=== PATIENT | female | born 1955 | race Caucasian/White ===

== ENCOUNTER → 2016-06-10 | Outpatient (CLI) | payer MEDICARE ==
--- NOTE | 2016-06-10 16:00 | RAD ---
EXAM: MAMMO HERRERA SCREENING BILATERAL. HISTORY: Screening. COMPARISON: 12/06/2014 and 11/29/2008. FINDINGS: 2-D and 3-D tomosynthesis mammograms were obtained of both breasts in the CC and MLO projections. Computer-aided detection (CAD) was utilized. The breast parenchyma is heterogeneously dense which could reduce sensitivity of mammography (tissue density C). No dominant suspicious mass, suspicious microcalcifications, or architectural distortion is identified. Both breasts demonstrate scattered, benign-appearing calcifications as well as well-circumscribed, benign-appearing masses favored represent lymph nodes. IMPRESSION: No mammographic evidence of malignancy. BI-RADS CATEGORY: 2 BENIGN FINDING RECOMMENDED FOLLOW-UP: 12M 12 MONTH FOLLOW-UP PQRS compliance statement: Patient information was entered into a reminder system with a target due date for the next mammogram. Mammography is a sensitive method for finding small breast cancers, but it does not detect them all and is not a substitute for careful clinical examination. A negative mammogram does not negate a clinically suspicious finding and should not result in delay in biopsying a clinically suspicious abnormality. "Our facility is accredited by the [employer] Mammography Program."
== END | disposition home or self-care (01) ==
LOC: MAMMO 14:12
PROVIDERS: ATTEND Family Medicine
DX: Z12.31 Encounter for screening mammogram for malignant neoplasm of breast (principal)
CPT/HCPCS: 77063; G0202; 77067

== ENCOUNTER → 2017-03-17 | Outpatient (CLI) | payer MEDICARE ==
--- NOTE | 2017-03-17 09:06 | RAD ---
3 views left knee 03/17/2017 2:00 AM Indication: LEFT KNEE PAIN Comparison: None Findings: There is no fracture or dislocation identified. Articular surfaces are uninterrupted. Soft tissues are unremarkable. Impression: No evidence of acute osseous abnormality
== END | disposition home or self-care (01) ==
LOC: DXRAD 08:37
PROVIDERS: ATTEND Family Medicine
DX: M25.562 Pain in left knee (principal)
CPT/HCPCS: 73562

== ENCOUNTER → 2017-05-29 | Outpatient (CLI) | payer MEDICARE ==
--- NOTE | 2017-05-29 08:50 | RAD ---
Chest, 2 views, 05/29/2017: History: COPD Comparison is made to a study from 01/26/2015. The heart size and pulmonary vascularity are normal. There is calcific plaquing of the aorta. No pulmonary infiltrate is seen. There is no evidence of pleural fluid. Mild spurring is present in the spine. IMPRESSION: No acute cardiopulmonary abnormality is detected.
== END | disposition home or self-care (01) ==
LOC: LAB 08:19
PROVIDERS: ATTEND Family Medicine
DX: J44.1 Chronic obstructive pulmonary disease with (acute) exacerbation (principal)
CPT/HCPCS: 71046

== ENCOUNTER 2017-06-16 17:30 | Inpatient (IN) | payer MEDICARE ==
[~2017-06-16] VITALS: Ht 170.2 cm; Wt 108.0 kg
--- NOTE | 2017-06-16 17:44 | ED.ADGEN ---
Past History Past Medical History: Anxiety, COPD, GERD, Other Adult General Chief Complaint Chief Complaint ".. I started have chest pain yesterday.. millicent right here in the center... but today .. I had it all day.. I got scared this afternoon because it got really worse..." HPI HPI Patient is a 61 year old female who presents with above hx and complaints of CP , central, non-radiating, not related to movement or respirations. Pt. States pain was more than 10/10 this afternoon. Pt. denies prior episodes of CADz./ PE. Hx. of GERD, COPD and Anxiety. No hx of trauma. No cough or fever. Pt, . No hx of immunosuppression. No travel. Pt. does not know parents medical hx. Pt. normally follow with Dr. South. Review of Systems Review of Systems Constitutional: Denies fever or chills [] Eyes: Denies change in visual acuity, redness, or eye pain [] HENT: Denies nasal congestion or sore throat [] Respiratory: Denies cough or shortness of breath [] Cardiovascular: No additional information not addressed in HPI [] GI: Denies abdominal pain, nausea, vomiting, bloody stools or diarrhea [] : Denies dysuria or hematuria [] Musculoskeletal: Denies back pain or joint pain [] Integument: Denies rash or skin lesions [] Neurologic: Denies headache, focal weakness or sensory changes [] Endocrine: Denies polyuria or polydipsia [] All other systems were reviewed and found to be within normal limits, except as documented in this note. Family History Family History Not Know Current Medications Current Medications Current Medications Medications (Trade) Dose Ordered Sig/Maegan Start Time Stop Time Status Last Admin Dose Admin Acetaminophen/ Hydrocodone Bitart (Lortab 5/325) 1 tab 1X ONCE 06/16/17 19:15 06/16/17 19:16 DC 06/16/17 19:22 1 TAB Albuterol/ Ipratropium (Duoneb) 3 ml 1X ONCE 06/16/17 20:45 06/16/17 20:47 DC 06/16/17 20:52 3 ML Aspirin (Children'S Aspirin) 324 mg 1X ONCE 06/16/17 18:15 06/16/17 18:16 DC 06/16/17 18:26 324 MG Enoxaparin Sodium (Lovenox 100mg Syringe) 100 mg 1X ONCE 06/16/17 20:45 06/16/17 20:47 DC 06/16/17 20:54 100 MG Iohexol (Omnipaque 300 Mg/ml) 75 ml 1X ONCE 06/16/17 21:00 06/16/17 21:01 DC 06/16/17 21:13 75 ML Nitroglycerin (Nitro-Bid Oint) 1 inch 1X ONCE 06/16/17 18:00 06/16/17 18:15 DC 06/16/17 18:28 1 INCH Ondansetron HCl (Zofran) 8 mg 1X ONCE 06/16/17 19:15 06/16/17 19:16 DC 06/16/17 19:20 8 MG Sodium Chloride 1,000 ml @ 100 mls/hr Q10H 06/16/17 18:15 06/17/17 04:14 DC 06/16/17 18:10 100 MLS/HR Allergies Allergies Allergies Coded Allergies Type Severity Reaction Last Updated Verified meperidine Allergy Unknown 06/16/17 Yes Physical Exam Physical Exam Constitutional: Moderate distress, non-toxic appearance. [] HENT: Normocephalic, atraumatic, bilateral external ears normal, oropharynx moist, no oral exudates, nose normal. [] Eyes: PERRLA, EOMI, conjunctiva normal, no discharge. [] Neck: Normal range of motion, no tenderness, supple, no stridor. [] Cardiovascular: Tachycardia Heart rate regular rhythm, no murmur [] Lungs & Thorax: Bilateral breath sounds few scattered wheeze but equal at apex auscultation [] Abdomen: Bowel sounds normal, soft, no tenderness, no masses, no pulsatile masses. [] Obese. Skin: Warm, dry, no erythema, no rash. [] Back: No tenderness, no CVA tenderness. [] Extremities: No tenderness, no cyanosis, no clubbing, ROM intact, no edema. [] No significant cording noted. Neurologic: Alert and oriented X 3, normal motor function, normal sensory function, no focal deficits noted. [] Psychologic: Affect anxious, judgement normal, mood normal. [] Current Patient Data Vital Signs Vital Signs Date Time Temp Pulse Resp B/P (MAP) Pulse Ox O2 Delivery O2 Flow Rate FiO2 06/16/17 20:48 93 18 122/82 (95) 95 Room Air 06/16/17 17:52 98.1 Lab Results Laboratory Tests Test 06/16/17 18:00 06/16/17 18:10 White Blood Count 11.9 x10^3/uL (4.0-11.0) H Red Blood Count 4.97 x10^6/uL (3.50-5.40) Hemoglobin 14.4 g/dL (12.0-15.5) Hematocrit 42.3 % (36.0-47.0) Mean Corpuscular Volume 85 fL (79-100) Mean Corpuscular Hemoglobin 29 pg (25-35) Mean Corpuscular Hemoglobin Concent 34 g/dL (31-37) Red Cell Distribution Width 14.6 % (11.5-14.5) H Platelet Count 274 x10^3/uL (140-400) Neutrophils (%) (Auto) 78 % (31-73) H Lymphocytes (%) (Auto) 14 % (24-48) L Monocytes (%) (Auto) 6 % (0-9) Eosinophils (%) (Auto) 2 % (0-3) Basophils (%) (Auto) 0 % (0-3) Neutrophils # (Auto) 9.3 x10^3uL (1.8-7.7) H Lymphocytes # (Auto) 1.6 x10^3/uL (1.0-4.8) Monocytes # (Auto) 0.7 x10^3/uL (0.0-1.1) Eosinophils # (Auto) 0.2 x10^3/uL (0.0-0.7) Basophils # (Auto) 0.0 x10^3/uL (0.0-0.2) Prothrombin Time 9.5 SEC (9.4-11.4) Prothrombin Time INR 0.9 (0.9-1.1) PTT 27 SEC (23-33) D-Dimer (Meaghan) 0.98 mg/L (0.00-0.50) H Sodium Level 141 mmol/L (136-145) Potassium Level 3.5 mmol/L (3.5-5.1) Chloride Level 101 mmol/L (98-107) Carbon Dioxide Level 27 mmol/L (21-32) Anion Gap 13 (6-14) Blood Urea Nitrogen 20 mg/dL (7-20) Creatinine 1.1 mg/dL (0.6-1.0) H Estimated GFR (Cockcroft-Gault) 50.7 Glucose Level 102 mg/dL (70-99) H Calcium Level 9.5 mg/dL (8.5-10.1) Magnesium Level 2.0 mg/dL (1.8-2.4) Total Bilirubin 0.3 mg/dL (0.2-1.0) Direct Bilirubin < 0.1 mg/dL (0.0-0.2) Aspartate Amino Transferase (AST) 21 U/L (15-37) Alanine Aminotransferase (ALT) 27 U/L (14-59) Alkaline Phosphatase 102 U/L (46-116) Creatine Kinase 54 U/L (26-192) Creatine Kinase MB (Mass) < 0.5 ng/mL (0.0-3.6) Creatine Kinase MB Relative Index 0.9 % (0-4) Troponin I Quantitative < 0.017 ng/mL (0-0.055) UB-Puc-A-Type Natriuretic Peptide 67 pg/mL (0-124) Total Protein 7.1 g/dL (6.4-8.2) Albumin 3.8 g/dL (3.4-5.0) Lipase 270 U/L (73-393) Urine Collection Type Unknown Urine Color Straw Urine Clarity Clear Urine pH 6.5 Urine Specific [place] 1.015 Urine Protein Neg (NEG-TRACE) Urine Glucose (UA) Neg mg/dL (NEG) Urine Ketones (Stick) Neg mg/dL (NEG) Urine Blood Neg (NEG) Urine Nitrite Neg (NEG) Urine Bilirubin Neg (NEG) Urine Urobilinogen Dipstick 0.2 mg/dL (0.2 mg/dL) Urine Leukocyte Esterase Neg (NEG) Urine RBC 1-2 /HPF (0-2) Urine WBC Occ /HPF (0-4) Urine Squamous Epithelial Cells Mod /LPF Urine Bacteria Few /HPF (0-FEW) Urine Opiates Screen Neg (NEG) Urine Methadone Screen Neg (NEG) Urine Barbiturates Neg (NEG) Urine Phencyclidine Screen Neg (NEG) Urine Amphetamine/Methamphetamine Neg (NEG) Urine Benzodiazepines Screen Neg (NEG) Urine Cocaine Screen Neg (NEG) Urine Cannabinoids Screen Pos (NEG) Urine Ethyl Alcohol Neg (NEG) EKG EKG Dictation of EKG shows a sinus rhythm at 90 bpm. There is some leftward axis finding. There is some nonspecific anterior lateral changes. But no findings of acute STEMI of contralateral changes.[] Radiology/Procedures Radiology/Procedures My interpretation of chest x-ray shows some findings of chronic lung changes COPD type pattern. Borderline Cardiac silhouette. No free air under the diaphragm. Some degenerative joint changes.[] Course & Med Decision Making Course & Med Decision Making Pertinent Labs and Imaging studies reviewed. (See chart for details). Discussed presentation, testing and tx. plan with Dr. Alvarez- will admit for further eval and tx. Will complete CT when pt. hydrated. [] Final Impression Final Impression 1. Chest pain[] 2. Hypertension 3. Elevated D-dimer 4. Elevated Creat. 5. Tob and Marijuana use. Problems: Dragon Disclaimer Dragon Disclaimer This electronic medical record was generated, in whole or in part, using a voice recognition dictation system. ANDRÉS MUSTAFA MD Jun 16, 2017 17:44
[2017-06-16] MEDS ORDERED: NITROGLYCERIN OINT 1 GM PACKET. TP ONE (18:00)
[2017-06-16] MEDS ORDERED: ASPIRIN 81 MG TAB.CHEW PO ONE (18:15)
[2017-06-16] MEDS ORDERED: IV NORMAL SALINE 1,000ML 1,000 ML IV SCH (18:15)
[2017-06-16 18:29] LABS: BASO % 0 % (0-3); EOS # 0.2 x10^3/uL (0.0-0.7); EOS % 2 % (0-3); HEMATOCRIT 42.3 % (36.0-47.0); HEMOGLOBIN 14.4 g/dL (12.0-15.5); LYMPH # 1.6 x10^3/uL (1.0-4.8); LYMPH % 14 % (24-48); MEAN CORPUSCULAR HEMOGLOBIN 29 pg (25-35); MEAN CORPUSCULAR HGB CONC 34 g/dL (31-37); MEAN CORPUSCULAR VOLUME 85 fL (79-100); MONO # 0.7 x10^3/uL (0.0-1.1); MONO % 6 % (0-9); NEUT # 9.3 x10^3uL (1.8-7.7); NEUT % 78 % (31-73); PLATELET COUNT 274 x10^3/uL (140-400); RED BLOOD COUNT 4.97 x10^6/uL (3.50-5.40); RED CELL DISTRIBUTION WIDTH 14.6 % (11.5-14.5); WHITE BLOOD COUNT 11.9 x10^3/uL (4.0-11.0)
[2017-06-16 18:52] LABS: AMPHETAMINE/METHAMPHETAMINE NEG (NEG); BARBITURATES NEG (NEG); BENZODIAZEPINES NEG (NEG); CANNABINOIDS POS (NEG); COCAINE NEG (NEG); METHADONE NEG (NEG); OPIATES NEG (NEG); PHENCYCLIDINE NEG (NEG)
[2017-06-16 19:00] LABS: BACTERIA,URINE FEW /HPF (0-FEW); BILIRUBIN,URINE NEG (NEG); CLARITY,URINE CLEAR; COLOR,URINE STRAW; GLUCOSE,URINE NEG (NEG); NITRITE,URINE NEG (NEG); SQUAMOUS EPITHELIAL CELL,UR MOD /LPF; UROBILINOGEN,URINE 0.2 mg/dL (0.2 mg/dL); WBC,URINE OCC /HPF (0-4)
[2017-06-16 19:07] LABS: ALBUMIN 3.8 g/dL (3.4-5.0); ALK PHOS 102 U/L (46-116); ALT (SGPT) 27 U/L (14-59); ANION GAP 13 (6-14); AST (SGOT) 21 U/L (15-37); BLOOD UREA NITROGEN 20 mg/dL (7-20); CALCIUM 9.5 mg/dL (8.5-10.1); CARBON DIOXIDE 27 mmol/L (21-32); CHLORIDE 101 mmol/L (98-107); CREATININE 1.1 mg/dL (0.6-1.0); GFR 50.7; GLUCOSE 102 mg/dL (70-99); LIPASE 270 U/L (73-393); POTASSIUM 3.5 mmol/L (3.5-5.1); SODIUM 141 mmol/L (136-145); TOTAL BILIRUBIN 0.3 mg/dL (0.2-1.0); TOTAL PROTEIN 7.1 g/dL (6.4-8.2)
[2017-06-16 19:08] LABS: DIRECT BILIRUBIN < 0.1 mg/dL (0.0-0.2)
[2017-06-16] MEDS ORDERED: ONDANSETRON PF 4 MG/2 ML VIAL. IV ONE (19:15)
[2017-06-16] MEDS ORDERED: HYDROcodone/APAP 5/325MG 1 TAB TABLET PO ONE (19:15)
[2017-06-16] MEDS ORDERED: ENOXAPARIN ** NOTE DOSE ** SYRINGE SQ ONE (20:45)
[2017-06-16] MEDS ORDERED: IPRATRPIUM/ALBUTEROL 0.5/2.5MG 3 ML NEBU. NEB ONE (20:45)
[2017-06-16] MEDS ORDERED: IOHEXOL 300 MG/ML 75 ML VIAL. IV ONE (21:00)
[2017-06-16] MEDS ORDERED: ONDANSETRON PF 4 MG/2 ML VIAL. IV PRN (22:00)
--- NOTE | 2017-06-16 22:25 | RAD ---
INDICATION: [id number] Omni 300 75cc: PE protocol: Chest pain, short of air, elevated d-dimer. Hx: COPD COMPARISON: August 2015 TECHNIQUE: Axial CT images obtained through the chest. Intravenous contrast utilized. Angiogram 3D images processed per protocol. One or more of the following individualized dose reduction techniques were utilized for this examination: 1. Automated exposure control; 2. Adjustment of the mA and/or kV according to patient size; 3. Use of iterative reconstruction technique. FINDINGS: There are some scattered pulmonary nodules identified throughout the bilateral lungs. The patient had some pulmonary nodules on prior but overall there appears to be some increase of a couple of them and others appear stable. For example within the left midlung anteriorly there is a subpleural nodule measuring approximately 5 mm which is likely slightly increased from prior. At right lung base there is a subpleural nodule identified measuring up to about 9 mm which is similar prior. There are multiple additional nodules seen bilaterally in addition. The majority of these were likely present on prior exam as well. Mild groundglass opacities bilaterally. There is a possible low-density lesion at partially visualized right kidney measuring up to about 15 mm versus prominent portion of the renal medulla. Calcific atherosclerosis of the thoracic aorta is identified. No definite thoracic aortic aneurysm. Portion of a ascending thoracic aorta obscured by motion. There is some fullness of the distal esophagus. There are some scattered prominent lymph nodes within the mediastinum. There is some fullness of the soft tissues within the left retroareolar region of the breast partially visualized. Degenerative changes of the spine. No central pulmonary embolus. Some limitation peripherally secondary to motion. IMPRESSION: 1. No central pulmonary embolus but some limitation peripherally secondary motion. 2. Scattered nodules are seen throughout the bilateral lungs measuring up to approximately 1 cm in size. Many of these are similar appearance when compared to prior but a couple of them appear slightly more prominent. It may be helpful to obtain a follow-up exam in a few months to ensure no growth given the presence of these findings. 3. There is some apparent fullness of the esophagus. Would correlate with symptoms in the region to ensure that there is not a pathologic cause such as esophagitis or esophageal lesion. 4. There is some fullness of the soft tissues at the partially visualized left breast in the retroareolar region. Could be secondary to prominent breast tissue but if the patient has not had a recent mammogram and may be helpful to obtain one to further evaluate and ensure that there is not a pathologic cause. 5. There are some prominent lymph nodes within the mediastinum. Attention on follow-up exam. 6. Mild groundglass opacities bilaterally. Could be from hypoventilatory changes but mild edema or airway inflammation can have this appearance. Electronically signed by: Shemar Gil MD (06/16/2017 10:21 PM) [facility]
[2017-06-16] MEDS ORDERED: MORPHINE SULFATE 4 MG/ML DISP.SYRIN. IV PRN (22:30)
[2017-06-16 23:26] VITALS: BP 107/69
[2017-06-16] MEDS: IV RINGERS SOLUTION,LACTATED 1,000 ML IV SCH (23:52)
[2017-06-17] MEDS ORDERED: CLON1TAB3 PO (00:34)
[2017-06-17] MEDS ORDERED: ESOM40CA PO (00:34)
[2017-06-17] MEDS ORDERED: BUDE10.22 IH (00:34)
[2017-06-17] MEDS ORDERED: BUDE0.5A11 IH (00:34)
[2017-06-17] MEDS ORDERED: ALBU18HF IH (00:34)
[2017-06-17] MEDS ORDERED: HYDR25TA9 PO (00:34)
[2017-06-17] MEDS ORDERED: ALBU6.7H IH (00:34)
[2017-06-17] MEDS ORDERED: MIRA50TA PO (00:34)
[2017-06-17] MEDS ORDERED: LINA290C PO (00:34)
[2017-06-17] MEDS ORDERED: LEVO112T4 PO (00:34)
[2017-06-17] MEDS ORDERED: IBUP100O25 PO (00:34)
[2017-06-17] MEDS ORDERED: CITA40TA5 PO (00:34)
[2017-06-17] MEDS ORDERED: ZAFI20TA11 PO (00:34)
[2017-06-17] MEDS ORDERED: ACETAMINOPHEN 325 MG TABLET PO PRN (02:45)
[2017-06-17] MEDS: LEVOTHYROXINE 112 MCG TABLET PO SCH (05:04)
[2017-06-17] MEDS: IV RINGERS SOLUTION,LACTATED 1,000 ML IV SCH (05:17)
[2017-06-17] MEDS: ENOXAPARIN ** NOTE DOSE ** SYRINGE SQ SCH ×2 (05:18→18:13)
[2017-06-17 05:32] VITALS: BP 119/73
--- NOTE | 2017-06-17 06:35 | EKG ---
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
[2017-06-17 06:42] LABS: BASO % 0 % (0-3); EOS # 0.2 x10^3/uL (0.0-0.7); EOS % 3 % (0-3); HEMATOCRIT 37.6 % (36.0-47.0); HEMOGLOBIN 12.5 g/dL (12.0-15.5); LYMPH # 1.5 x10^3/uL (1.0-4.8); LYMPH % 21 % (24-48); MEAN CORPUSCULAR HEMOGLOBIN 28 pg (25-35); MEAN CORPUSCULAR HGB CONC 33 g/dL (31-37); MEAN CORPUSCULAR VOLUME 85 fL (79-100); MONO # 0.4 x10^3/uL (0.0-1.1); MONO % 5 % (0-9); NEUT % 70 % (31-73); PLATELET COUNT 218 x10^3/uL (140-400); RED BLOOD COUNT 4.42 x10^6/uL (3.50-5.40); RED CELL DISTRIBUTION WIDTH 14.6 % (11.5-14.5); WHITE BLOOD COUNT 7.1 x10^3/uL (4.0-11.0)
[2017-06-17 06:52] LABS: CALCIUM 8.7 mg/dL (8.5-10.1); GFR 56.6
[2017-06-17 06:56] LABS: POTASSIUM 2.5 mmol/L (3.5-5.1)
[2017-06-17] MEDS ORDERED: POTASSIUM CL 40MEQ D5-0.45NACL 1,000 ML IV SCH (07:15)
[2017-06-17] MEDS ORDERED: POTASSIUM CHLORIDE 20 MEQ TABLET.ER. PO ONE ×3 (07:15→09:00)
--- NOTE | 2017-06-17 08:28 | RAD ---
Chest, 2 views, 06/16/2017: History: Chest pain Comparison is made to a study from 05/29/2017. The heart size and pulmonary vascularity are normal. There is calcific plaquing of the aorta. No pulmonary infiltrate is seen. There is no evidence of pleural fluid. Mild spurring is present in the spine. IMPRESSION: No acute cardiopulmonary abnormality is detected.
[2017-06-17] MEDS: CITALOPRAM 20 MG TABLET. PO SCH (08:31)
[2017-06-17] MEDS: hydroCHLOROthiazide 25 MG TABLET PO SCH (08:31)
[2017-06-17] MEDS: clonazePAM 1 MG TABLET PO SCH ×2 (08:31→20:54)
[2017-06-17] MEDS: PANTOPRAZOLE 40 MG TABLET. PO SCH (08:31)
[2017-06-17] MEDS: ASPIRIN 81 MG TAB.CHEW PO SCH (08:31)
[2017-06-17] MEDS ORDERED: THEO600T PO (08:36)
[2017-06-17] MEDS: THEOPHYLLINE ANHYDROUS 400 MG TABLET.ER. PO SCH (08:52)
[2017-06-17] MEDS: MIRABEGRON 25 MG TAB.ER.24H PO SCH (08:52)
[2017-06-17] MEDS: LINACLOTIDE 145 MCG CAPSULE. PO SCH (08:52)
[2017-06-17] MEDS ORDERED: NITROGLYCERIN OINT 1 GM PACKET. TP SCH (09:00)
--- NOTE | 2017-06-17 09:47 | PDOC2 ---
IDALMIS GALE WOMEN NURSE 06/17/17 0947: CONSULT Date of Admission DATE: 06/17/17 TIME: 09:44 Reason for Consult: cp Problem List Problems Medical Problems: (1) Chest pain Status: Acute History of Present Illness Ms Mansfield is a 61 year old female with history of asthma, copd, and pulmonary nodules for which she is followed by a instructor private at [facility]. Shereports waking in the night early yesterday with midsternal chest pain that she describes as a cross between reflux and pressure. She reports the pressure was mild and she was able to go back to sleep. When she got up in the morning about 8 the pain was still present and became progressively worse during the day. She had taken her grand-kids to the park and reports that being busy occasionally distracted her but by the afternoon she was concerned so presented for evaluation. She reports increased symptoms with cough and deep breathing. She does report intermittent nausea as well as some associated malaise. She reports some radiation into her throat. She currently is resting comfortably but reports pain with deep inspiration. She denies any increase with exertion and believes she was more comfortable laying down. She complains of fever, chills and productive cough for several days. She denies any congestive symptoms, lightheadedness or syncope. She reports that she has not been very active but has been slowly increasing her activity without any significant increase in symptoms. She reports baseline dyspnea with her asthma /copd and states that she never stops wheezing. Past Medical History asthma, COPD, pulmonary nodules, GERD, one episode of elevated cholesterol but not on any recommended treatment, hypothyroid, anxiety She denies any prior history of coronary disease or dysfunction Past Surgical History she denies any significant surgical history Family History unknown Social History remote tobaccoism, no significant ETOH, occasional marijuana use. denies other illicit drugs. Current Medications Current Medications Aspirin (Children'S Aspirin) 324 mg 1X ONCE PO Last administered on 06/16/17at 18:26; Start 06/16/17 at 18:15; Stop 06/16/17 at 18:16; Status DC Sodium Chloride 1,000 ml @ 100 mls/hr Q10H IV Last administered on 06/16/17at 18:10; Start 06/16/17 at 18:15; Stop 06/17/17 at 04:14; Status DC Nitroglycerin (Nitro-Bid Oint) 1 inch 1X ONCE TP Last administered on at 18:28; Start 06/16/17 at 18:00; Stop 06/16/17 at 18:15; Status DC Ondansetron HCl (Zofran) 8 mg 1X ONCE IV Last administered on 06/16/17at 19:20 ; Start 06/16/17 at 19:15; Stop 06/16/17 at 19:16; Status DC Acetaminophen/ Hydrocodone Bitart (Lortab 5/325) 1 tab 1X ONCE PO Last administered on 06/16/17at 19:22; Start 06/16/17 at 19:15; Stop 06/16/17 at 19:16 ; Status DC Enoxaparin Sodium (Lovenox 100mg Syringe) 100 mg 1X ONCE SQ Last administered on 06/16/17at 20:54; Start 06/16/17 at 20:45; Stop 06/16/17 at 20:47; Status DC Albuterol/ Ipratropium (Duoneb) 3 ml 1X ONCE NEB Last administered on at 20:52; Start 06/16/17 at 20:45; Stop 06/16/17 at 20:47; Status DC Iohexol (Omnipaque 300 Mg/ml) 75 ml 1X ONCE IV Last administered on 06/16/17at 21:13; Start 06/16/17 at 21:00; Stop 06/16/17 at 21:01; Status DC Ondansetron HCl (Zofran) 4 mg PRN Q4HRS PRN IV NAUSEA/VOMITING; Start 06/16/17 at 22:00; Stop 06/17/17 at 21:59 Aspirin (Children'S Aspirin) 81 mg DAILY PO Last administered on 06/17/17at 08:31 ; Start 06/17/17 at 09:00 Enoxaparin Sodium (Lovenox 100mg Syringe) 100 mg BID66 SQ Last administered on 06/17/17at 05:18; Start 06/17/17 at 06:00 Lactated Ringer's 1,000 ml @ 160 mls/hr Q6H15M IV Last administered on at 05:17; Start 06/16/17 at 22:30 Morphine Sulfate (Morphine 4mg Syringe) 2 mg PRN QID PRN IV PAIN; Start at 22:30 Nitroglycerin (Nitro-Bid Oint) 0.5 inch TID TP ; Start 06/17/17 at 09:00 Albuterol Sulfate (Ventolin) 2.5 mg PRN Q4HRS PRN NEB SHORTNESS OF BREATH; Start 06/17/17 at 01:00 Budesonide (Pulmicort) 0.5 mg RTBID IH ; Start 06/17/17 at 08:00 Clonazepam (KlonoPIN) 1 mg BID PO Last administered on 06/17/17at 08:31; Start at 09:00 Hydrochlorothiazide (Hydrodiuril) 25 mg DAILY PO Last administered on 06/17/17at 08:31; Start 06/17/17 at 09:00 Levothyroxine Sodium (Synthroid) 112 mcg DAILY06 PO Last administered on at 05:04; Start 06/17/17 at 06:00 Citalopram Hydrobromide (CeleXA) 40 mg DAILY PO Last administered on 06/17/17at 08:31; Start 06/17/17 at 09:00 Pantoprazole Sodium (Protonix) 40 mg DAILYAC PO Last administered on 06/17/17at 08:31; Start 06/17/17 at 07:30 Non-Formulary Medication (Linaclotide (Linzess)) 290 mcg DAILY PO ; Start at 09:00; Status UNV Non-Formulary Medication (Mirabegron (Myrbetriq)) 50 mg DAILY PO ; Start at 09:00; Status UNV Montelukast Sodium (Singulair) 10 mg QHS PO ; Start 06/17/17 at 21:00 Acetaminophen (Tylenol) 650 mg PRN Q6HRS PRN PO MILD PAIN / TEMP Last administered on 06/17/17at 02:51; Start 06/17/17 at 02:45 Potassium Chloride (Klor-Con) 40 meq 1X ONCE PO Last administered on 06/17/17at 08:30; Start 06/17/17 at 07:15; Stop 06/17/17 at 07:18; Status DC Potassium Chloride (Klor-Con) 40 meq 1X ONCE PO Last administered on 06/17/17at 08:52; Start 06/17/17 at 08:00; Stop 06/17/17 at 08:01; Status DC Potassium Chloride (Klor-Con) 40 meq 1X ONCE PO Last administered on 06/17/17at 09:06; Start 06/17/17 at 09:00; Stop 06/17/17 at 09:01; Status DC Potassium Chloride/Dextrose/ Sod Cl 1,000 ml @ 100 mls/hr Q10H IV Last administered on 06/17/17at 08:33; Start 06/17/17 at 07:15 Theophylline (Theophylline Extended Release) 600 mg DAILY PO Last administered on 06/17/17at 08:52; Start 06/17/17 at 09:00 Active Scripts Active Reported Theophylline (Theophylline Anhydrous) 600 Mg Tablet.er 600 Mg PO DAILY Symbicort 80-4.5 Mcg Inhaler (Budesonide/Formoterol Fumarate) 10.2 Gm Hfa.aer.ad 2 Puff IH BID Proventil Hfa Inhaler (Albuterol Sulfate) 6.7 Gm Hfa.aer.ad 1 Puff IH PRN Q4HRS PRN Ventolin Hfa Inhaler (Albuterol Sulfate) 18 Gm Hfa.aer.ad 1 Puff IH PRN Q4HRS PRN Budesonide 0.5 Mg/2 Ml Ampul.neb 0.5 Mg IH QID Myrbetriq (Mirabegron) 50 Mg Tab.er.24h 50 Mg PO DAILY Citalopram Hbr (Citalopram Hydrobromide) 40 Mg Tablet 40 Mg PO DAILY Ibuprofen 100 Mg/5 Ml Oral.susp 600 Mg PO PRN Q8HRS PRN Levothyroxine Sodium 112 Mcg Tablet 112 Mcg PO DAILY06 Accolate (Zafirlukast) 20 Mg Tablet 20 Mg PO BID Hydrochlorothiazide Tablet (Hydrochlorothiazide) 25 Mg Tablet 25 Mg PO DAILY Nexium Capsule (Esomeprazole Magnesium) 40 Mg Capsule.dr 40 Mg PO DAILYAC Linzess (Linaclotide) 290 Mcg Capsule 290 Mcg PO DAILY Clonazepam 1 Mg Tablet 1 Mg PO BID Allergies: Coded Allergies: meperidine (Verified Allergy, Intermediate, 06/17/17) Review of System as per HPI or negative General: Alert, Oriented X3, Cooperative, No acute distress HEENT: Atraumatic, EOMI, Mucous membr. moist/pink Lungs: Other (diffuse expiratory wheezing) Heart: Regular rate, Normal S1, Normal S2, Other (no gallops, clicks or rubs) Abdomen: Normal bowel sounds, Soft Extremities: No cyanosis, No edema, Normal pulses Neuro: Normal speech, Strength at 5/5 X4 ext Psych/Mental Status: Mental status NL, Mood NL VITALS Vital Signs Date Time Temp Pulse Resp B/P (MAP) Pulse Ox O2 Delivery O2 Flow Rate FiO2 06/17/17 08:45 Room Air 06/17/17 05:32 97.8 90 18 119/73 (88) 93 Labs Laboratory Tests Test 06/16/17 18:00 06/16/17 18:10 06/17/17 00:45 06/17/17 06:16 White Blood Count 11.9 x10^3/uL (4.0-11.0) 7.1 x10^3/uL (4.0-11.0) Red Blood Count 4.97 x10^6/uL (3.50-5.40) 4.42 x10^6/uL (3.50-5.40) Hemoglobin 14.4 g/dL (12.0-15.5) 12.5 g/dL (12.0-15.5) Hematocrit 42.3 % (36.0-47.0) 37.6 % (36.0-47.0) Mean Corpuscular Volume 85 fL (79-100) 85 fL (79-100) Mean Corpuscular Hemoglobin 29 pg (25-35) 28 pg (25-35) Mean Corpuscular Hemoglobin Concent 34 g/dL (31-37) 33 g/dL (31-37) Red Cell Distribution Width 14.6 % (11.5-14.5) 14.6 % (11.5-14.5) Platelet Count 274 x10^3/uL (140-400) 218 x10^3/uL (140-400) Neutrophils (%) (Auto) 78 % (31-73) 70 % (31-73) Lymphocytes (%) (Auto) 14 % (24-48) 21 % (24-48) Monocytes (%) (Auto) 6 % (0-9) 5 % (0-9) Eosinophils (%) (Auto) 2 % (0-3) 3 % (0-3) Basophils (%) (Auto) 0 % (0-3) 0 % (0-3) Neutrophils # (Auto) 9.3 x10^3uL (1.8-7.7) 5.0 x10^3uL (1.8-7.7) Lymphocytes # (Auto) 1.6 x10^3/uL (1.0-4.8) 1.5 x10^3/uL (1.0-4.8) Monocytes # (Auto) 0.7 x10^3/uL (0.0-1.1) 0.4 x10^3/uL (0.0-1.1) Eosinophils # (Auto) 0.2 x10^3/uL (0.0-0.7) 0.2 x10^3/uL (0.0-0.7) Basophils # (Auto) 0.0 x10^3/uL (0.0-0.2) 0.0 x10^3/uL (0.0-0.2) Prothrombin Time 9.5 SEC (9.4-11.4) Prothromb Time International Ratio 0.9 (0.9-1.1) Activated Partial Thromboplast Time 27 SEC (23-33) D-Dimer (Meaghan) 0.98 mg/L (0.00-0.50) Sodium Level 141 mmol/L (136-145) 143 mmol/L (136-145) Potassium Level 3.5 mmol/L (3.5-5.1) 2.5 mmol/L (3.5-5.1) Chloride Level 101 mmol/L (98-107) 106 mmol/L (98-107) Carbon Dioxide Level 27 mmol/L (21-32) 26 mmol/L (21-32) Anion Gap 13 (6-14) 11 (6-14) Blood Urea Nitrogen 20 mg/dL (7-20) 13 mg/dL (7-20) Creatinine 1.1 mg/dL (0.6-1.0) 1.0 mg/dL (0.6-1.0) Estimated GFR (Cockcroft-Gault) 50.7 56.6 Glucose Level 102 mg/dL (70-99) 156 mg/dL (70-99) Calcium Level 9.5 mg/dL (8.5-10.1) 8.7 mg/dL (8.5-10.1) Magnesium Level 2.0 mg/dL (1.8-2.4) Total Bilirubin 0.3 mg/dL (0.2-1.0) Direct Bilirubin < 0.1 mg/dL (0.0-0.2) Aspartate Amino Transf (AST/SGOT) 21 U/L (15-37) Alanine Aminotransferase (ALT/SGPT) 27 U/L (14-59) Alkaline Phosphatase 102 U/L (46-116) Creatine Kinase 54 U/L (26-192) Creatine Kinase MB (Mass) < 0.5 ng/mL (0.0-3.6) Creatine Kinase MB Relative Index 0.9 % (0-4) Troponin I Quantitative < 0.017 ng/mL (0-0.055) < 0.017 ng/mL (0-0.055) < 0.017 ng/mL (0-0.055) JP-Dby-J-Type Natriuretic Peptide 67 pg/mL (0-124) Total Protein 7.1 g/dL (6.4-8.2) Albumin 3.8 g/dL (3.4-5.0) Lipase 270 U/L (73-393) Urine Collection Type Unknown Urine Color Straw Urine Clarity Clear Urine pH 6.5 Urine Specific [place] 1.015 Urine Protein Neg (NEG-TRACE) Urine Glucose (UA) Neg mg/dL (NEG) Urine Ketones (Stick) Neg mg/dL (NEG) Urine Blood Neg (NEG) Urine Nitrite Neg (NEG) Urine Bilirubin Neg (NEG) Urine Urobilinogen Dipstick 0.2 mg/dL (0.2 mg/dL) Urine Leukocyte Esterase Neg (NEG) Urine RBC 1-2 /HPF (0-2) Urine WBC Occ /HPF (0-4) Urine Squamous Epithelial Cells Mod /LPF Urine Bacteria Few /HPF (0-FEW) Urine Opiates Screen Neg (NEG) Urine Methadone Screen Neg (NEG) Urine Barbiturates Neg (NEG) Urine Phencyclidine Screen Neg (NEG) Urine Amphetamine/Methamphetamine Neg (NEG) Urine Benzodiazepines Screen Neg (NEG) Urine Cocaine Screen Neg (NEG) Urine Cannabinoids Screen Pos (NEG) Urine Ethyl Alcohol Neg (NEG) Images EKG sinus rhythm, leftward axis, non specific changes, no acute ischemia CXR - no acute abn CT negative for PE Assessment/Plan 1. Chest pain, atypical Prolonged course with negative Demario less likely cardiac. No acute EKG changes. 2. Respiratory insufficiency likely COPD exacerbation /URI - per PCP. would suggest outpatient pulmonary follow up and/or PFTs if not done. 3. dyslipidemia - repeat FLP 4. GERD and throat discomfort - consider GI evaluation 5. pulmonary nodules - follow up with pulmonary who has been monitoring this. 6. lymphadenopathy - per PCP 7. left breast soft tissue abn by CT - per PCP, suggest outpatient mammogram if not done recently. Check echo for LV function, check FLP. ? dyspnea on exertion combination of anginal symptoms and COPD. Consider outpatient dobutamine MPI unless significant abn on echo. Problems: JERRY BURK MD 06/17/17 1432: CONSULT Allergies: Coded Allergies: meperidine (Verified Allergy, Intermediate, 06/17/17) Assessment/Plan Patient seen and examined. Agree with HIGHWAY TECHNICIAN's assessment and plan. Chest pain with atypical features. Myocardial infarction been ruled out. Check 2-D echo to assess LV systolic function and rule out wall motion abnormalities. Further ischemic workup in the form of dobutamine nuclear stress test could be considered as an outpatient. Continue current treatment for COPD exacerbation per IM. Thank you for your consultation. Problems: IDALMIS GALE APRN June 17, 2017 09:47 JERRY BURK MD June 17, 2017 14:32
[2017-06-17 11:10] LABS: CALCIUM 9.1 mg/dL (8.5-10.1); CREATININE 0.9 mg/dL (0.6-1.0); GFR 63.9; POTASSIUM 3.5 mmol/L (3.5-5.1)
[2017-06-17] MEDS: BUDESONIDE 0.5 MG/2 ML NEBU IH SCH ×2 (11:12→21:50)
[2017-06-17 11:19] VITALS: BP 130/89
--- NOTE | 2017-06-17 12:39 | RAD ---
Bilateral lower extremity venous duplex ultrasound. 06/17/2017 12:35 PM Indication: edema, pain, elevated. d-dimer, chest pain Comparison study: None Discussion: Sonographic evaluation of the deep veins of the bilateral lower extremities was performed. This includes grayscale imaging and color duplex imaging with spectral analysis. No evidence of deep venous thrombosis is seen. Interrogated veins are compressible and demonstrate augmentable blood flow and color Doppler imaging. Left popliteal fossa cyst noted. Impression: No evidence of deep venous thrombosis involving either lower extremity.
--- NOTE | 2017-06-17 14:37 | HP ---
ADMIT DATE: 06/17/2017 HISTORY OF PRESENT ILLNESS: The patient is a 61-year-old female patient with past medical history significant for bronchial asthma, chronic obstructive pulmonary disease and pulmonary nodules for which she is followed by pen tester at [facility]. She reported waking up in the night with midsternal chest pain that she describes as cross between reflux and pressure and the pressure was mild and was able to go back to sleep. When she got up in the morning the pain was still present and became progressively worse during the day. She did report some radiation to her throat and she also stated that her pain was increased by coughing and deep breathing with intermittent nausea, but no vomiting. There is no diaphoresis. She denied any shortness of breath, dizziness or lightheadedness. She was evaluated in the Emergency Room and had her first set of cardiac enzyme showed the troponin to be less than 0.017. She was admitted to do 2 more sets of cardiac enzymes to consult the cardiology team. PAST MEDICAL HISTORY: Significant for bronchial asthma, chronic obstructive pulmonary disease. She is also had hyperthyroidism. PAST SURGICAL HISTORY: Significant for esophagogastroduodenoscopy, colonoscopy x 3 as well as esophageal stricture that required dilatation. ALLERGIES: She is allergic to DEMEROL. MEDICATIONS: She is currently on following medications: She is on albuterol sulfate 1 puff every 4 hours as needed. She is also on albuterol by nebulizer every 4 hours. She takes ibuprofen 600 mg every 8 hours as needed, clonazepam 1 mg twice a day. She is also on citalopram hydrobromide 40 mg once a day, hydrochlorothiazide 25 mg once a day, Pulmicort 0.5 mg 3 mL by nebulizer twice a day, Symbicort 80/4.5 mcg inhaler 2 puffs twice a day. She is on Accolate 20 mg twice a day, Nexium capsule 40 mg daily, linaclotide for Linzess 290 mcg daily, levothyroxine sodium 112 mcg daily. She is also on Myrbetriq 50 mg once a day, theophylline anhydrous 600 mg daily. FAMILY HISTORY: left her family when she was 15 years old. She stated that 3 of her brothers of a heart attack. Her father at age of 32. Her mother is still alive, but she could not elaborate more about her medical history. SOCIAL HISTORY: She is , has a son and a daughter. Her stepdaughter was and she has a son that she adopted. She quit smoking about 40 years ago. She does not drink alcohol. She does smoke pot every now and then. She denied any abuse of cocaine, methamphetamine or heroin. 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 REVIEW OF SYSTEMS: The patient denied any blurring of vision, cataract, glaucoma or macular degeneration. Denied any earache, tinnitus or sensorineural deafness. Denied any nosebleeds, stuffy nose or postnasal drip. Denied any sore throat, sore tongue, toothache, hoarseness of voice or difficulty swallowing. She does have nausea, but no vomiting. Denied any diarrhea or constipation. Denied any hematemesis, melena or hematochezia. She denied any dysuria, frequency or hematuria. Did complain of chest pain. Denied any dizziness, lightheadedness, or vertigo. PHYSICAL EXAMINATION: GENERAL: On arrival to the Emergency Room, she looked well and was clearly in no apparent respiratory distress, slightly pale, but no jaundice or cyanosis. No lymphadenopathy, no thyromegaly. No jugular venous distention. No limb edema. VITAL SIGNS: Her heart rate was 96, blood pressure was 136/89, temperature was 98.1, respiratory rate 20, and oxygen saturation was 96% on room air. HEAD, EYES, EARS, NOSE AND THROAT: Showed normocephalic, atraumatic. NECK: Supple. HEART: Showed normal first and second heart sounds. No gallop, rub or murmur. CHEST: Showed central trachea, equally reduced expansion, reduced air entry, vesicular sounds with crepitation, diffuse rhonchi bilaterally. I could not really appreciate any crepitation. ABDOMEN: Distended, soft, nontender. No guarding or rigidity. No organomegaly. All hernial orifice intact. Bowel sounds normal. NEUROLOGIC: She is awake, alert, responding appropriately. All her cranial nerves intact. EXTREMITIES: She moves her extremities without difficulty. She ambulates without assistance or assistive devices. LABORATORY DATA: On admission showed a white cell count of 11,900, hemoglobin 14.4, hematocrit 42, MCV 85 and platelet count 274,000. Her serum sodium was 141, potassium 3.5, chloride 101, bicarbonate 27, anion gap of 13, BUN 20, creatinine 1.1, estimated GFR was 50 mL per minute. Her calcium was 9.5, magnesium 2. Total bilirubin, AST, ALT, alkaline phosphatase were normal. Total protein was 7.1, albumin was 3.8 and serum lipase was 170. Her prothrombin time was 9.5, INR of 0.9, aPTT was 27. Estimated GFR was 0.98 mg/dL. Urinalysis was essentially unremarkable and toxic screen was positive for cannabinoids. She has had a chest x-ray, which basically showed no acute cardiopulmonary abnormalities detected. She did have CT angio of the chest, which showed that the patient has no central pulmonary embolus, but some limitation peripherally secondary to motion. She has scattered nodules are seen throughout bilateral lung measuring up to 1 cm in size. Many of these are similar in appearance when compared to prior with a couple of them appears to be slightly more prominent. There is some apparent fullness of the esophagus. There is also some fullness of the soft tissue at the partially visualized left breast in the retroareolar region could be secondary to prominent breast issue. There are some prominent lymph nodes within the mediastinum, so the patient was admitted to do 2 more sets of cardiac enzymes and to consult the cardiology team to decide on further management accordingly. ZAYDA LUZ MD DR: ARIS/jayne JOB#: [id number] / [id number]
[2017-06-17 15:04] LABS: THYROID STIM HORMONE (TSH) 1.292 uIU/mL (0.358-3.740)
[2017-06-17 16:00] VITALS: BP 115/72
[2017-06-17 19:38] VITALS: BP 136/88
[2017-06-17] MEDS: MONTELUKAST 10 MG TABLET. PO SCH ×3 (20:54→20:57)
[2017-06-17 22:58] VITALS: BP 101/58
--- NOTE | 2017-06-18 01:56 | PN ---
DATE: 06/17/2017 SUBJECTIVE: The patient is sitting slightly propped up in bed, in no apparent distress. Awake, alert. On questioning her, she stated that her chest pain has largely subsided. She has had 3 sets of cardiac enzymes, all of them were negative, showed no evidence of myocardial infarction. She was seen by the Cardiology team and the plan was to arrange for her to have an echocardiogram before proceeding further with stress test. PHYSICAL EXAMINATION: GENERAL: When I examined her this afternoon, she looked well and was clearly in no apparent respiratory distress, pale, but no jaundice, cyanosis, or thyromegaly. No jugular venous distension. No limb edema. VITAL SIGNS: Her heart rate was 79, blood pressure was 130/89, temperature was 97.6, respiratory rate was 20, and oxygen saturation was 96%. Rest of clinical examination is unremarkable, has not really changed. LABORATORY DATA: Showed a white cell count 7100, hemoglobin was 12.5, hematocrit 37, MCV 85 and platelet count of 218,000. She did have severe hypokalemia this morning with a serum potassium 2.5 that was replenished successfully. By the time I saw her, her serum sodium was 143, potassium 3.5, chloride 107, bicarbonate 27, anion gap of 9, BUN 11. ASSESSMENT AND PLAN: In summary, this is a 61-year-old female patient who came with somewhat atypical chest pain. She has so far three sets of cardiac enzyme and myocardial infarction was ruled out. She is scheduled for an echocardiogram this afternoon. The radiologist will decide on further management according to the finding on her echocardiogram. ZAYDA LUZ MD DR: ARIS/jayne JOB#: [id number] / [id number]
[2017-06-18 05:28] VITALS: BP 111/73
[2017-06-18] MEDS: ENOXAPARIN ** NOTE DOSE ** SYRINGE SQ SCH (05:49)
[2017-06-18] MEDS: LEVOTHYROXINE 112 MCG TABLET PO SCH (05:49)
[2017-06-18] MEDS: BUDESONIDE 0.5 MG/2 ML NEBU IH SCH ×2 (06:02→20:42)
[2017-06-18 06:50] LABS: ALBUMIN 3.1 g/dL (3.4-5.0); CALCIUM 8.9 mg/dL (8.5-10.1); CREATININE 0.7 mg/dL (0.6-1.0); GFR 85.4; HEMATOCRIT 39.3 % (36.0-47.0); POTASSIUM 3.3 mmol/L (3.5-5.1); RED BLOOD COUNT 4.61 x10^6/uL (3.50-5.40); RED CELL DISTRIBUTION WIDTH 14.4 % (11.5-14.5); TOTAL BILIRUBIN 0.4 mg/dL (0.2-1.0); TOTAL PROTEIN 6.3 g/dL (6.4-8.2); WHITE BLOOD COUNT 6.6 x10^3/uL (4.0-11.0)
[2017-06-18] MEDS: ALBUTEROL SULFATE 2.5 MG/3 ML NEBU. NEB PRN ×2 (08:26→13:59)
[2017-06-18] MEDS: CITALOPRAM 20 MG TABLET. PO SCH (08:27)
[2017-06-18] MEDS: PANTOPRAZOLE 40 MG TABLET. PO SCH (08:27)
[2017-06-18] MEDS: clonazePAM 1 MG TABLET PO SCH ×2 (08:28→21:05)
[2017-06-18] MEDS: LINACLOTIDE 145 MCG CAPSULE. PO SCH (08:28)
[2017-06-18] MEDS: MIRABEGRON 25 MG TAB.ER.24H PO SCH (08:28)
[2017-06-18] MEDS: ASPIRIN 81 MG TAB.CHEW PO SCH (08:28)
[2017-06-18] MEDS: hydroCHLOROthiazide 25 MG TABLET PO SCH (08:29)
[2017-06-18] MEDS: THEOPHYLLINE ANHYDROUS 400 MG TABLET.ER. PO SCH (08:29)
--- NOTE | 2017-06-18 08:31 | CARD ---
MR#: [id number] Date of Study: 06/17/2017 Ordering Physician: IDALMIS GALE, Referring Physician: ZAYDA LUZ, Tech: COLE Hathaway APPROVED REPORT EXAM: Two-dimensional and M-mode echocardiogram with Doppler and color Doppler. Other Information Quality : Fair INDICATION Dyspnea Chest Pain 2D DIMENSIONS Left Atrium(2D)4.3 (1.6-4.0cm)IVSd1.1 (0.7-1.1cm) LVDd4.4 (3.9-5.9cm)LVOT Diameter2.1 (1.8-2.4cm) PWd0.9 (0.7-1.1cm)LVDs3.5 (2.5-4.0cm) FS (%) 28.0 %SV37.2 ml LVEF(%)60.0 (>50%) Aortic Valve AoV Peak Seun.130.8cm/[place] Peak GR.6.8mmHg LVOT Peak Seun.86.2cm/sAVA (VMAX)2.30cm2 Mitral Valve MV E Lbjgmfgr11.1cm/sMV DECEL [id number] MV A Staixqas25.9cm/sE/A Ratio1.0 LEFT VENTRICLE The left ventricle is normal size. There is normal left ventricular wall thickness. The left ventricu lar systolic function is normal and the ejection fraction is within normal range. The Ejection Fracti on is 55-60%. There is normal LV segmental wall motion. The left ventricular diastolic function and f illing is normal for age. RIGHT VENTRICLE The right ventricle is normal size. There is normal right ventricular wall thickness. The right ventr icular systolic function is normal. ATRIA The left atrium is borderline dilated. The right atrium size is normal. The interatrial septum is mil dly thickened. AORTIC VALVE The aortic valve is probably trileaflet and not well visualized. Doppler and Color Flow revealed no s ignificant aortic regurgitation. There is no significant aortic valvular stenosis. MITRAL VALVE The mitral valve is normal in structure and function. There is no mitral valve stenosis. Doppler and Color Flow revealed no mitral valve regurgitation noted. TRICUSPID VALVE The tricuspid valve is normal in structure and function. Doppler and Color Flow revealed trace tricus pid regurgitation. There is no tricuspid valve stenosis. PULMONIC VALVE The pulmonic valve is not well visualized. Doppler and Color Flow revealed no pulmonic valvular regur gitation. There is no pulmonic valvular stenosis. GREAT VESSELS The aortic root is not well visualized. The IVC is normal in size and collapses >50% with inspiration . PERICARDIAL EFFUSION There is no pleural effusion. There is no evidence of significant pericardial effusion. Critical Notification Critical Value: No <Conclusion> The left ventricular systolic function is normal and the ejection fraction is within normal range. Th e Ejection Fraction is 55-60%. There is normal LV segmental wall motion. Signed by : Matt Jean, Electronically Approved : 06/18/2017 08:30:46
--- NOTE | 2017-06-18 09:10 | PDOC ---
PROGRESS NOTES Diagnosis Problem Problems Medical Problems: (1) Chest pain Status: Acute Assessment Problems Medical Problems: (1) Chest pain Status: Acute 1. Chest pain - DE ruled out. Normal LV function and wall motion by echo. dobutamine stress in am. 2. Respiratory insufficiency likely COPD exacerbation /URI - improving. mgmt per PCP. would suggest outpatient pulmonary follow up and/or PFTs if not done. 3. dyslipidemia - add statin 4. GERD and throat discomfort - consider GI evaluation, pep PCP 5. pulmonary nodules - follow up with pulmonary who has been monitoring this. 6. lymphadenopathy - per PCP 7. left breast soft tissue abn by CT - per PCP, suggest outpatient mammogram if not done recently. Problems: Subjective feeling better. no chest pain this am. no palpitations, no lightheadedness. cough improving. Objective Vital Signs Date Time Temp Pulse Resp B/P (MAP) Pulse Ox O2 Delivery O2 Flow Rate FiO2 06/18/17 06:04 Room Air 06/18/17 05:28 98.1 83 20 111/73 (86) 95 Intake and Output 06/18/17 07:00 Intake Total 1752 ml Balance 1752 ml Intake Oral 1000 ml IV Total 752 ml # Voids 4 Abdomen: Normal bowel sounds, Soft, No tenderness Heart: Regular rate, Normal S1, Normal S2 Extremities: No cyanosis, Normal pulses General: Alert, Oriented X3, Cooperative, No acute distress HEENT: Atraumatic, EOMI Lungs: Other (expiratory wheezing, improved from yesterday) Neuro: Normal speech, Strength at 5/5 X4 ext Psych/Mental Status: Mental status NL, Mood NL Review of Relevant I have reviewed the following items mercedes (where applicable) has been applied. Labs Laboratory Tests Test 06/16/17 18:00 06/16/17 18:10 06/17/17 00:45 06/17/17 06:16 White Blood Count 11.9 x10^3/uL (4.0-11.0) 7.1 x10^3/uL (4.0-11.0) Red Blood Count 4.97 x10^6/uL (3.50-5.40) 4.42 x10^6/uL (3.50-5.40) Hemoglobin 14.4 g/dL (12.0-15.5) 12.5 g/dL (12.0-15.5) Hematocrit 42.3 % (36.0-47.0) 37.6 % (36.0-47.0) Mean Corpuscular Volume 85 fL (79-100) 85 fL (79-100) Mean Corpuscular Hemoglobin 29 pg (25-35) 28 pg (25-35) Mean Corpuscular Hemoglobin Concent 34 g/dL (31-37) 33 g/dL (31-37) Red Cell Distribution Width 14.6 % (11.5-14.5) 14.6 % (11.5-14.5) Platelet Count 274 x10^3/uL (140-400) 218 x10^3/uL (140-400) Neutrophils (%) (Auto) 78 % (31-73) 70 % (31-73) Lymphocytes (%) (Auto) 14 % (24-48) 21 % (24-48) Monocytes (%) (Auto) 6 % (0-9) 5 % (0-9) Eosinophils (%) (Auto) 2 % (0-3) 3 % (0-3) Basophils (%) (Auto) 0 % (0-3) 0 % (0-3) Neutrophils # (Auto) 9.3 x10^3uL (1.8-7.7) 5.0 x10^3uL (1.8-7.7) Lymphocytes # (Auto) 1.6 x10^3/uL (1.0-4.8) 1.5 x10^3/uL (1.0-4.8) Monocytes # (Auto) 0.7 x10^3/uL (0.0-1.1) 0.4 x10^3/uL (0.0-1.1) Eosinophils # (Auto) 0.2 x10^3/uL (0.0-0.7) 0.2 x10^3/uL (0.0-0.7) Basophils # (Auto) 0.0 x10^3/uL (0.0-0.2) 0.0 x10^3/uL (0.0-0.2) Prothrombin Time 9.5 SEC (9.4-11.4) Prothromb Time International Ratio 0.9 (0.9-1.1) Activated Partial Thromboplast Time 27 SEC (23-33) D-Dimer (Meaghan) 0.98 mg/L (0.00-0.50) Sodium Level 141 mmol/L (136-145) 143 mmol/L (136-145) Potassium Level 3.5 mmol/L (3.5-5.1) 2.5 mmol/L (3.5-5.1) Chloride Level 101 mmol/L (98-107) 106 mmol/L (98-107) Carbon Dioxide Level 27 mmol/L (21-32) 26 mmol/L (21-32) Anion Gap 13 (6-14) 11 (6-14) Blood Urea Nitrogen 20 mg/dL (7-20) 13 mg/dL (7-20) Creatinine 1.1 mg/dL (0.6-1.0) 1.0 mg/dL (0.6-1.0) Estimated GFR (Cockcroft-Gault) 50.7 56.6 Glucose Level 102 mg/dL (70-99) 156 mg/dL (70-99) Calcium Level 9.5 mg/dL (8.5-10.1) 8.7 mg/dL (8.5-10.1) Magnesium Level 2.0 mg/dL (1.8-2.4) Total Bilirubin 0.3 mg/dL (0.2-1.0) Direct Bilirubin < 0.1 mg/dL (0.0-0.2) Aspartate Amino Transf (AST/SGOT) 21 U/L (15-37) Alanine Aminotransferase (ALT/SGPT) 27 U/L (14-59) Alkaline Phosphatase 102 U/L (46-116) Creatine Kinase 54 U/L (26-192) Creatine Kinase MB (Mass) < 0.5 ng/mL (0.0-3.6) Creatine Kinase MB Relative Index 0.9 % (0-4) Troponin I Quantitative < 0.017 ng/mL (0-0.055) < 0.017 ng/mL (0-0.055) < 0.017 ng/mL (0-0.055) JT-Tpp-Z-Type Natriuretic Peptide 67 pg/mL (0-124) Total Protein 7.1 g/dL (6.4-8.2) Albumin 3.8 g/dL (3.4-5.0) Triglycerides Level 237 mg/dL (0-150) Cholesterol Level 218 mg/dL (0-200) LDL Cholesterol, Calculated 123 mg/dL (0-100) VLDL Cholesterol, Calculated 47 mg/dL (0-40) Non-HDL Cholesterol Calculated 170 mg/dL (0-129) HDL Cholesterol 48 mg/dL (40-60) Cholesterol/HDL Ratio 4.0 Lipase 270 U/L (73-393) Thyroid Stimulating Hormone (TSH) 1.292 uIU/mL (0.358-3.740) Urine Collection Type Unknown Urine Color Straw Urine Clarity Clear Urine pH 6.5 Urine Specific [place] 1.015 Urine Protein Neg (NEG-TRACE) Urine Glucose (UA) Neg mg/dL (NEG) Urine Ketones (Stick) Neg mg/dL (NEG) Urine Blood Neg (NEG) Urine Nitrite Neg (NEG) Urine Bilirubin Neg (NEG) Urine Urobilinogen Dipstick 0.2 mg/dL (0.2 mg/dL) Urine Leukocyte Esterase Neg (NEG) Urine RBC 1-2 /HPF (0-2) Urine WBC Occ /HPF (0-4) Urine Squamous Epithelial Cells Mod /LPF Urine Bacteria Few /HPF (0-FEW) Urine Opiates Screen Neg (NEG) Urine Methadone Screen Neg (NEG) Urine Barbiturates Neg (NEG) Urine Phencyclidine Screen Neg (NEG) Urine Amphetamine/Methamphetamine Neg (NEG) Urine Benzodiazepines Screen Neg (NEG) Urine Cocaine Screen Neg (NEG) Urine Cannabinoids Screen Pos (NEG) Urine Ethyl Alcohol Neg (NEG) Test 06/17/17 10:55 06/18/17 05:33 Sodium Level 143 mmol/L (136-145) 142 mmol/L (136-145) Potassium Level 3.5 mmol/L (3.5-5.1) 3.3 mmol/L (3.5-5.1) Chloride Level 107 mmol/L (98-107) 106 mmol/L (98-107) Carbon Dioxide Level 27 mmol/L (21-32) 29 mmol/L (21-32) Anion Gap 9 (6-14) 7 (6-14) Blood Urea Nitrogen 11 mg/dL (7-20) 7 mg/dL (7-20) Creatinine 0.9 mg/dL (0.6-1.0) 0.7 mg/dL (0.6-1.0) Estimated GFR (Cockcroft-Gault) 63.9 85.4 Glucose Level 127 mg/dL (70-99) 101 mg/dL (70-99) Calcium Level 9.1 mg/dL (8.5-10.1) 8.9 mg/dL (8.5-10.1) White Blood Count 6.6 x10^3/uL (4.0-11.0) Red Blood Count 4.61 x10^6/uL (3.50-5.40) Hemoglobin 13.0 g/dL (12.0-15.5) Hematocrit 39.3 % (36.0-47.0) Mean Corpuscular Volume 85 fL (79-100) Mean Corpuscular Hemoglobin 28 pg (25-35) Mean Corpuscular Hemoglobin Concent 33 g/dL (31-37) Red Cell Distribution Width 14.4 % (11.5-14.5) Platelet Count 228 x10^3/uL (140-400) BUN/Creatinine Ratio 10 (6-20) Total Bilirubin 0.4 mg/dL (0.2-1.0) Aspartate Amino Transf (AST/SGOT) 20 U/L (15-37) Alanine Aminotransferase (ALT/SGPT) 26 U/L (14-59) Alkaline Phosphatase 87 U/L (46-116) Total Protein 6.3 g/dL (6.4-8.2) Albumin 3.1 g/dL (3.4-5.0) Albumin/Globulin Ratio 1.0 (1.0-1.7) Medications Current Medications Aspirin (Children'S Aspirin) 324 mg 1X ONCE PO Last administered on 06/16/17at 18:26; Start 06/16/17 at 18:15; Stop 06/16/17 at 18:16; Status DC Sodium Chloride 1,000 ml @ 100 mls/hr Q10H IV Last administered on 06/16/17at 18:10; Start 06/16/17 at 18:15; Stop 06/17/17 at 04:14; Status DC Nitroglycerin (Nitro-Bid Oint) 1 inch 1X ONCE TP Last administered on at 18:28; Start 06/16/17 at 18:00; Stop 06/16/17 at 18:15; Status DC Ondansetron HCl (Zofran) 8 mg 1X ONCE IV Last administered on 06/16/17at 19:20 ; Start 06/16/17 at 19:15; Stop 06/16/17 at 19:16; Status DC Acetaminophen/ Hydrocodone Bitart (Lortab 5/325) 1 tab 1X ONCE PO Last administered on 06/16/17at 19:22; Start 06/16/17 at 19:15; Stop 06/16/17 at 19:16 ; Status DC Enoxaparin Sodium (Lovenox 100mg Syringe) 100 mg 1X ONCE SQ Last administered on 06/16/17at 20:54; Start 06/16/17 at 20:45; Stop 06/16/17 at 20:47; Status DC Albuterol/ Ipratropium (Duoneb) 3 ml 1X ONCE NEB Last administered on at 20:52; Start 06/16/17 at 20:45; Stop 06/16/17 at 20:47; Status DC Iohexol (Omnipaque 300 Mg/ml) 75 ml 1X ONCE IV Last administered on 06/16/17at 21:13; Start 06/16/17 at 21:00; Stop 06/16/17 at 21:01; Status DC Ondansetron HCl (Zofran) 4 mg PRN Q4HRS PRN IV NAUSEA/VOMITING; Start 06/16/17 at 22:00; Stop 06/17/17 at 21:59; Status DC Aspirin (Children'S Aspirin) 81 mg DAILY PO Last administered on 06/18/17at 08:28 ; Start 06/17/17 at 09:00 Enoxaparin Sodium (Lovenox 100mg Syringe) 100 mg [id number] SQ Last administered on 06/18/17at 05:49; Start 06/17/17 at 06:00 Lactated Ringer's 1,000 ml @ 160 mls/hr Q6H15M IV Last administered on at 05:17; Start 06/16/17 at 22:30; Stop 06/17/17 at 09:53; Status DC Morphine Sulfate (Morphine 4mg Syringe) 2 mg PRN QID PRN IV PAIN; Start at 22:30 Nitroglycerin (Nitro-Bid Oint) 0.5 inch TID TP ; Start 06/17/17 at 09:00; Stop at 14:32; Status DC Albuterol Sulfate (Ventolin) 2.5 mg PRN Q4HRS PRN NEB SHORTNESS OF BREATH Last administered on 06/18/17at 08:26; Start 06/17/17 at 01:00 Budesonide (Pulmicort) 0.5 mg RTBID IH Last administered on 06/18/17at 06:02; Start 06/17/17 at 08:00 Clonazepam (KlonoPIN) 1 mg BID PO Last administered on 06/18/17at 08:28; Start at 09:00 Hydrochlorothiazide (Hydrodiuril) 25 mg DAILY PO Last administered on 06/18/17at 08:29; Start 06/17/17 at 09:00 Levothyroxine Sodium (Synthroid) 112 mcg DAILY06 PO Last administered on at 05:49; Start 06/17/17 at 06:00 Citalopram Hydrobromide (CeleXA) 40 mg DAILY PO Last administered on 06/18/17at 08:27; Start 06/17/17 at 09:00 Pantoprazole Sodium (Protonix) 40 mg DAILYAC PO Last administered on 06/18/17at 08:27; Start 06/17/17 at 07:30 Non-Formulary Medication (Linaclotide (Linzess)) 290 mcg DAILY PO ; Start at 09:00; Status UNV Non-Formulary Medication (Mirabegron (Myrbetriq)) 50 mg DAILY PO ; Start at 09:00; Status UNV Montelukast Sodium (Singulair) 10 mg QHS PO Last administered on 06/17/17at 20:57 ; Start 06/17/17 at 21:00 Acetaminophen (Tylenol) 650 mg PRN Q6HRS PRN PO MILD PAIN / TEMP Last administered on 06/17/17at 02:51; Start 06/17/17 at 02:45 Potassium Chloride (Klor-Con) 40 meq 1X ONCE PO Last administered on 06/17/17at 08:30; Start 06/17/17 at 07:15; Stop 06/17/17 at 07:18; Status DC Potassium Chloride (Klor-Con) 40 meq 1X ONCE PO Last administered on 06/17/17at 08:52; Start 06/17/17 at 08:00; Stop 06/17/17 at 08:01; Status DC Potassium Chloride (Klor-Con) 40 meq 1X ONCE PO Last administered on 06/17/17at 09:06; Start 06/17/17 at 09:00; Stop 06/17/17 at 09:01; Status DC Potassium Chloride/Dextrose/ Sod Cl 1,000 ml @ 100 mls/hr Q10H IV Last administered on 06/17/17at 08:33; Start 06/17/17 at 07:15; Stop 06/17/17 at 14:32; Status DC Theophylline (Theophylline Extended Release) 600 mg DAILY PO Last administered on 06/18/17at 08:29; Start 06/17/17 at 09:00 Active Scripts Active Reported Theophylline (Theophylline Anhydrous) 600 Mg Tablet.er 600 Mg PO DAILY Symbicort 80-4.5 Mcg Inhaler (Budesonide/Formoterol Fumarate) 10.2 Gm Hfa.aer.ad 2 Puff IH BID Proventil Hfa Inhaler (Albuterol Sulfate) 6.7 Gm Hfa.aer.ad 1 Puff IH PRN Q4HRS PRN Ventolin Hfa Inhaler (Albuterol Sulfate) 18 Gm Hfa.aer.ad 1 Puff IH PRN Q4HRS PRN Budesonide 0.5 Mg/2 Ml Ampul.neb 0.5 Mg IH QID Myrbetriq (Mirabegron) 50 Mg Tab.er.24h 50 Mg PO DAILY Citalopram Hbr (Citalopram Hydrobromide) 40 Mg Tablet 40 Mg PO DAILY Ibuprofen 100 Mg/5 Ml Oral.susp 600 Mg PO PRN Q8HRS PRN Levothyroxine Sodium 112 Mcg Tablet 112 Mcg PO DAILY06 Accolate (Zafirlukast) 20 Mg Tablet 20 Mg PO BID Hydrochlorothiazide Tablet (Hydrochlorothiazide) 25 Mg Tablet 25 Mg PO DAILY Nexium Capsule (Esomeprazole Magnesium) 40 Mg Capsule.dr 40 Mg PO DAILYAC Linzess (Linaclotide) 290 Mcg Capsule 290 Mcg PO DAILY Clonazepam 1 Mg Tablet 1 Mg PO BID Vitals/I & O Vital Sign - Last 24 Hours 06/17/17 06/17/17 06/17/17 5/1/18 11:19 16:00 19:38 20:05 Temp 97.6 98.2 97.3 Pulse 79 82 93 Resp 20 20 20 B/P (MAP) 130/89 (103) 115/72 (86) 136/88 (104) Pulse Ox 96 96 95 O2 Delivery Room Air Room Air Room Air Room Air 06/17/17 06/18/17 06/18/17 22:58 05:28 06:04 Temp 97.9 98.1 Pulse 97 83 Resp 18 20 B/P (MAP) 101/58 (72) 111/73 (86) Pulse Ox 95 95 O2 Delivery Room Air Room Air Room Air Intake and Output 06/17/17 06/17/17 06/18/17 15:00 23:00 07:00 Intake Total 1232 ml 520 ml Balance 1232 ml 520 ml IDALMIS GALE APRN June 18, 2017 09:10
[2017-06-18 09:44] VITALS: BP 146/64
[2017-06-18 10:17] VITALS: BP 124/69
[2017-06-18 14:39] VITALS: BP 119/68
[2017-06-18] MEDS: ENOXAPARIN 40 MG/0.4 ML DISP.SYRIN. SQ SCH (17:40)
[2017-06-18 18:45] VITALS: BP 130/78
[2017-06-18] MEDS: MONTELUKAST 10 MG TABLET. PO SCH (21:05)
[2017-06-18 23:30] VITALS: BP 113/74
--- NOTE | 2017-06-19 01:09 | PN ---
DATE: 06/18/2017 SUBJECTIVE: The patient is sitting slightly propped up in bed, eating her dinner, in no apparent distress. On questioning denied any complaint. Apparently, she underwent a dobutamine stress test in morning. PHYSICAL EXAMINATION: GENERAL: When I examined her this afternoon, she looked well and was clearly in no apparent respiratory distress, slightly pale, but no jaundice, cyanosis, or thyromegaly. No jugular venous distension. No lower limb edema. VITAL SIGNS: Her heart rate was 138, blood pressure was 119/68, temperature was 98, respiratory rate 20, and oxygen saturation was 95%. HEAD, EYES, EARS, NOSE AND THROAT: Showed normocephalic, atraumatic. NECK: Supple. HEART: Showed normal first and second heart sounds. No gallop, rub or murmur. CHEST: Clear to auscultation. No crepitation or rhonchi. ABDOMEN: Distended, soft, nontender. NEUROLOGIC: She is bleeding from the site of the Lovenox and we cut down Lovenox. No need prophylactic instead of therapeutic as her CT angio of the chest showed no evidence of pulmonary emboli. NEUROLOGIC: She is awake, alert, responding appropriately. All her cranial nerves are intact. She moves extremities without difficulty. LABORATORY DATA: Her lab work this morning showed a white cell count of 6600, hemoglobin 13, hematocrit 39, MCV 85 and platelet count 228,000. Her chemistry showed a serum sodium 142, potassium 3.3, chloride 106, bicarbonate 29, anion gap of 7, BUN 7, creatinine 0.7, estimated GFR was 85 mL per minute. Her glucose was 101. Calcium was 8.9. Total bilirubin, AST, ALT, alkaline phosphatase were normal. Total protein 6.3, albumin 3.1. The patient has 3 sets of cardiac enzymes they are all negative. ASSESSMENT: Chest pain with 3 negative cardiac enzymes ruling out myocardial infarction, had an echocardiogram that showed that she has normal left ventricular function and wall motion. She is scheduled for dobutamine stress test tomorrow. Respiratory insufficiency, likely due to chronic obstructive pulmonary disease exacerbation, dyslipidemia, gastroesophageal reflux disease and left breast soft tissue abnormality by CT scan. The CT scan showed no central pulmonary embolus with some limitation peripherally secondary to motion. She has scattered nodules are seen throughout the bilateral lung measuring up to approximately 1 cm in size. Many of these are similar in appearance when compared to prior with a couple of them appear slightly more prominent, may be helpful to obtain a followup exam in a few months to ensure no growth. Given presence of these findings there is some apparent fullness of the esophagus, we would correlate with symptoms. She also has some fullness of her soft tissue, at partially visualized left breast in the retroareolar region, could be secondary to prominent breast tissue. There are some prominent lymph nodes within the mediastinum. Attention on followup exam. She has mild ground glass opacities bilaterally, could be from hypoventilatory changes, but mild edema or airway inflammation can give a similar appearance. PLAN: To continue with all her current medication. I cut down the Lovenox to be given only prophylactically. We will arrange for her to be seen by a disability specialist given her multiple nodules and also we will arrange for her to have a mammogram as an outpatient. ZAYDA LUZ MD DR: ARIS/jayne JOB#: [id number] / [id number]
[2017-06-19 04:14] LABS: HEMOGLOBIN A1C 5.8 % (4.8-5.6)
[2017-06-19] MEDS: LEVOTHYROXINE 112 MCG TABLET PO SCH (06:02)
[2017-06-19] MEDS: ENOXAPARIN 40 MG/0.4 ML DISP.SYRIN. SQ SCH (06:02)
[2017-06-19 06:09] VITALS: BP 129/85
[2017-06-19 06:27] LABS: HEMATOCRIT 38.1 % (36.0-47.0); HEMOGLOBIN 12.7 g/dL (12.0-15.5); RED BLOOD COUNT 4.45 x10^6/uL (3.50-5.40); RED CELL DISTRIBUTION WIDTH 14.7 % (11.5-14.5); WHITE BLOOD COUNT 6.9 x10^3/uL (4.0-11.0)
[2017-06-19 06:40] LABS: ALBUMIN 3.1 g/dL (3.4-5.0); ALBUMIN/GLOBULIN RATIO 0.9 (1.0-1.7); CALCIUM 9.1 mg/dL (8.5-10.1); CREATININE 0.8 mg/dL (0.6-1.0); GFR 73.2; TOTAL BILIRUBIN 0.3 mg/dL (0.2-1.0); TOTAL PROTEIN 6.4 g/dL (6.4-8.2)
[2017-06-19] MEDS ORDERED: ATROPINE 0.5 MG/5 ML DISP.SYRIN. IV ONE (09:30)
[2017-06-19] MEDS: BUDESONIDE 0.5 MG/2 ML NEBU IH SCH (09:46)
[2017-06-19 11:00] VITALS: BP 134/84
[2017-06-19] MEDS: PANTOPRAZOLE 40 MG TABLET. PO SCH (11:27)
[2017-06-19] MEDS: clonazePAM 1 MG TABLET PO SCH (11:27)
[2017-06-19] MEDS: hydroCHLOROthiazide 25 MG TABLET PO SCH (11:28)
[2017-06-19] MEDS: ASPIRIN 81 MG TAB.CHEW PO SCH (11:28)
[2017-06-19] MEDS: CITALOPRAM 20 MG TABLET. PO SCH (11:28)
[2017-06-19] MEDS: MIRABEGRON 25 MG TAB.ER.24H PO SCH (11:29)
[2017-06-19] MEDS: THEOPHYLLINE ANHYDROUS 400 MG TABLET.ER. PO SCH (11:30)
[2017-06-19] MEDS: LINACLOTIDE 145 MCG CAPSULE. PO SCH (11:32)
--- NOTE | 2017-06-19 13:20 | PDOC ---
PROGRESS NOTES Diagnosis Problem Problems Medical Problems: (1) Chest pain Status: Acute Assessment Problems Medical Problems: (1) Chest pain Status: Acute 1. Chest pain - CA ruled out. Normal LV function and wall motion by echo. no further chest pain. Dobutamine stress this am. 2. Respiratory insufficiency likely COPD exacerbation /URI - significantly improved this am, much less tachypneic with minimal exertion. mgmt per PCP. would suggest outpatient pulmonary follow up and/or PFTs if not done. 3. dyslipidemia - await mpi results and then add statin vs fenofibrate. 4. GERD and throat discomfort - consider GI evaluation outpatient, per PCP 5. pulmonary nodules - follow up with pulmonary who has been monitoring this. 6. lymphadenopathy - per PCP 7. left breast soft tissue abn by CT - per PCP, suggest outpatient mammogram if not done recently. Problems: Subjective feeling much better. no chest pain, breathing improved, no palpitations, no lightheadedness. Objective Vital Signs Date Time Temp Pulse Resp B/P (MAP) Pulse Ox O2 Delivery O2 Flow Rate FiO2 06/19/17 11:00 98.3 91 18 134/84 (101) 95 Room Air Intake and Output 06/19/17 07:00 Intake Total 1085 ml Balance 1085 ml Intake Oral 1085 ml # Voids 4 Abdomen: Normal bowel sounds, Soft, No tenderness Heart: Regular rate, Normal S1, Normal S2 Extremities: No cyanosis, Normal pulses General: Alert, Oriented X3, Cooperative, No acute distress HEENT: Atraumatic, EOMI Lungs: Other (decreased bases, occasional wheeze) Neuro: Normal speech, Strength at 5/5 X4 ext Psych/Mental Status: Mental status NL, Mood NL Review of Relevant I have reviewed the following items mercedes (where applicable) has been applied. Labs Laboratory Tests Test 06/18/17 05:33 06/19/17 05:50 White Blood Count 6.6 x10^3/uL (4.0-11.0) 6.9 x10^3/uL (4.0-11.0) Red Blood Count 4.61 x10^6/uL (3.50-5.40) 4.45 x10^6/uL (3.50-5.40) Hemoglobin 13.0 g/dL (12.0-15.5) 12.7 g/dL (12.0-15.5) Hematocrit 39.3 % (36.0-47.0) 38.1 % (36.0-47.0) Mean Corpuscular Volume 85 fL (79-100) 86 fL (79-100) Mean Corpuscular Hemoglobin 28 pg (25-35) 29 pg (25-35) Mean Corpuscular Hemoglobin Concent 33 g/dL (31-37) 33 g/dL (31-37) Red Cell Distribution Width 14.4 % (11.5-14.5) 14.7 % (11.5-14.5) Platelet Count 228 x10^3/uL (140-400) 225 x10^3/uL (140-400) Sodium Level 142 mmol/L (136-145) 144 mmol/L (136-145) Potassium Level 3.3 mmol/L (3.5-5.1) 3.0 mmol/L (3.5-5.1) Chloride Level 106 mmol/L (98-107) 106 mmol/L (98-107) Carbon Dioxide Level 29 mmol/L (21-32) 28 mmol/L (21-32) Anion Gap 7 (6-14) 10 (6-14) Blood Urea Nitrogen 7 mg/dL (7-20) 12 mg/dL (7-20) Creatinine 0.7 mg/dL (0.6-1.0) 0.8 mg/dL (0.6-1.0) Estimated GFR (Cockcroft-Gault) 85.4 73.2 BUN/Creatinine Ratio 10 (6-20) 15 (6-20) Glucose Level 101 mg/dL (70-99) 114 mg/dL (70-99) Hemoglobin A1c 5.8 % (4.8-5.6) Calcium Level 8.9 mg/dL (8.5-10.1) 9.1 mg/dL (8.5-10.1) Total Bilirubin 0.4 mg/dL (0.2-1.0) 0.3 mg/dL (0.2-1.0) Aspartate Amino Transf (AST/SGOT) 20 U/L (15-37) 35 U/L (15-37) Alanine Aminotransferase (ALT/SGPT) 26 U/L (14-59) 41 U/L (14-59) Alkaline Phosphatase 87 U/L (46-116) 99 U/L (46-116) Total Protein 6.3 g/dL (6.4-8.2) 6.4 g/dL (6.4-8.2) Albumin 3.1 g/dL (3.4-5.0) 3.1 g/dL (3.4-5.0) Albumin/Globulin Ratio 1.0 (1.0-1.7) 0.9 (1.0-1.7) Medications Current Medications Aspirin (Children'S Aspirin) 324 mg 1X ONCE PO Last administered on 06/16/17 18:26; Start 06/16/17 at 18:15; Stop 06/16/17 at 18:16; Status DC Sodium Chloride 1,000 ml @ 100 mls/hr Q10H IV Last administered on 06/16/17at 18:10; Start 06/16/17 at 18:15; Stop 06/17/17 at 04:14; Status DC Nitroglycerin (Nitro-Bid Oint) 1 inch 1X ONCE TP Last administered on at 18:28; Start 06/16/17 at 18:00; Stop 06/16/17 at 18:15; Status DC Ondansetron HCl (Zofran) 8 mg 1X ONCE IV Last administered on 06/16/17at 19:20 ; Start 06/16/17 at 19:15; Stop 06/16/17 at 19:16; Status DC Acetaminophen/ Hydrocodone Bitart (Lortab 5/325) 1 tab 1X ONCE PO Last administered on 06/16/17at 19:22; Start 06/16/17 at 19:15; Stop 06/16/17 at 19:16 ; Status DC Enoxaparin Sodium (Lovenox 100mg Syringe) 100 mg 1X ONCE SQ Last administered on 06/16/17at 20:54; Start 06/16/17 at 20:45; Stop 06/16/17 at 20:47; Status DC Albuterol/ Ipratropium (Duoneb) 3 ml 1X ONCE NEB Last administered on at 20:52; Start 06/16/17 at 20:45; Stop 06/16/17 at 20:47; Status DC Iohexol (Omnipaque 300 Mg/ml) 75 ml 1X ONCE IV Last administered on 06/16/17at 21:13; Start 06/16/17 at 21:00; Stop 06/16/17 at 21:01; Status DC Ondansetron HCl (Zofran) 4 mg PRN Q4HRS PRN IV NAUSEA/VOMITING; Start 06/16/17 at 22:00; Stop 06/17/17 at 21:59; Status DC Aspirin (Children'S Aspirin) 81 mg DAILY PO Last administered on 06/19/17 11:28 ; Start 06/17/17 at 09:00 Enoxaparin Sodium (Lovenox 100mg Syringe) 100 mg BID66 SQ Last administered on 06/18/17at 05:49; Start 06/17/17 at 06:00; Stop 06/18/17 at 17:29; Status DC Lactated Ringer's 1,000 ml @ 160 mls/hr Q6H15M IV Last administered on at 05:17; Start 06/16/17 at 22:30; Stop 06/17/17 at 09:53; Status DC Morphine Sulfate (Morphine 4mg Syringe) 2 mg PRN QID PRN IV PAIN; Start at 22:30 Nitroglycerin (Nitro-Bid Oint) 0.5 inch TID TP ; Start 06/17/17 at 09:00; Stop at 14:32; Status DC Albuterol Sulfate (Ventolin) 2.5 mg PRN Q4HRS PRN NEB SHORTNESS OF BREATH Last administered on 06/18/17at 13:59; Start 06/17/17 at 01:00 Budesonide (Pulmicort) 0.5 mg RTBID IH Last administered on 06/19/17at 09:46; Start 06/17/17 at 08:00 Clonazepam (KlonoPIN) 1 mg BID PO Last administered on 06/19/17 11:27; Start at 09:00 Hydrochlorothiazide (Hydrodiuril) 25 mg DAILY PO Last administered on 06/19/17 11:28; Start 06/17/17 at 09:00 Levothyroxine Sodium (Synthroid) 112 mcg DAILY06 PO Last administered on at 06:02; Start 06/17/17 at 06:00 Citalopram Hydrobromide (CeleXA) 40 mg DAILY PO Last administered on 06/19/17 11:28; Start 06/17/17 at 09:00 Pantoprazole Sodium (Protonix) 40 mg DAILYAC PO Last administered on 06/19/17at 11:27; Start 06/17/17 at 07:30 Non-Formulary Medication (Linaclotide (Linzess)) 290 mcg DAILY PO ; Start at 09:00; Status UNV Non-Formulary Medication (Mirabegron (Myrbetriq)) 50 mg DAILY PO ; Start at 09:00; Status UNV Montelukast Sodium (Singulair) 10 mg QHS PO Last administered on 06/18/17at 21:05 ; Start 06/17/17 at 21:00 Acetaminophen (Tylenol) 650 mg PRN Q6HRS PRN PO MILD PAIN / TEMP Last administered on 06/17/17at 02:51; Start 06/17/17 at 02:45 Potassium Chloride (Klor-Con) 40 meq 1X ONCE PO Last administered on 06/17/17at 08:30; Start 06/17/17 at 07:15; Stop 06/17/17 at 07:18; Status DC Potassium Chloride (Klor-Con) 40 meq 1X ONCE PO Last administered on 06/17/17at 08:52; Start 06/17/17 at 08:00; Stop 06/17/17 at 08:01; Status DC Potassium Chloride (Klor-Con) 40 meq 1X ONCE PO Last administered on 06/17/17at 09:06; Start 06/17/17 at 09:00; Stop 06/17/17 at 09:01; Status DC Potassium Chloride/Dextrose/ Sod Cl 1,000 ml @ 100 mls/hr Q10H IV Last administered on 06/17/17at 08:33; Start 06/17/17 at 07:15; Stop 06/17/17 at 14:32; Status DC Theophylline (Theophylline Extended Release) 600 mg DAILY PO Last administered on 06/19/17at 11:30; Start 06/17/17 at 09:00 Enoxaparin Sodium (Lovenox) 40 mg BID66 SQ Last administered on 06/19/17at 06:02 ; Start 06/18/17 at 18:00 Dobutamine HCl 100 mg/Sodium Chloride 108 ml @ 4,666.11 mls/hr 1X ONCE IV Last administered on 06/19/17at 10:30; Start 06/19/17 at 08:30; Stop 06/19/17 at 08: 36; Status DC Atropine Sulfate (ATROPINE 0.5mg SYRINGE) 0.5 mg 1X ONCE IV ; Start 06/19/17 at 09:30; Stop 06/19/17 at 09:31; Status DC Dobutamine HCl 100 mg/Sodium Chloride 108 ml @ 34.99 mls/ hr 1X ONCE IV ; Start 06/19/17 at 09:30; Stop 06/19/17 at 12:35; Status DC Active Scripts Active Reported Theophylline (Theophylline Anhydrous) 600 Mg Tablet.er 600 Mg PO DAILY Symbicort 80-4.5 Mcg Inhaler (Budesonide/Formoterol Fumarate) 10.2 Gm Hfa.aer.ad 2 Puff IH BID Proventil Hfa Inhaler (Albuterol Sulfate) 6.7 Gm Hfa.aer.ad 1 Puff IH PRN Q4HRS PRN Ventolin Hfa Inhaler (Albuterol Sulfate) 18 Gm Hfa.aer.ad 1 Puff IH PRN Q4HRS PRN Budesonide 0.5 Mg/2 Ml Ampul.neb 0.5 Mg IH QID Myrbetriq (Mirabegron) 50 Mg Tab.er.24h 50 Mg PO DAILY Citalopram Hbr (Citalopram Hydrobromide) 40 Mg Tablet 40 Mg PO DAILY Ibuprofen 100 Mg/5 Ml Oral.susp 600 Mg PO PRN Q8HRS PRN Levothyroxine Sodium 112 Mcg Tablet 112 Mcg PO DAILY06 Accolate (Zafirlukast) 20 Mg Tablet 20 Mg PO BID Hydrochlorothiazide Tablet (Hydrochlorothiazide) 25 Mg Tablet 25 Mg PO DAILY Nexium Capsule (Esomeprazole Magnesium) 40 Mg Capsule.dr 40 Mg PO DAILYAC Linzess (Linaclotide) 290 Mcg Capsule 290 Mcg PO DAILY Clonazepam 1 Mg Tablet 1 Mg PO BID Vitals/I & O Vital Sign - Last 24 Hours 06/18/17 06/18/17 06/18/17 06/18/17 14:39 18:45 19:25 23:30 Temp 98.0 98.6 98.2 Pulse 138 118 101 Resp 20 18 16 B/P (MAP) 119/68 (85) 130/78 (95) 113/74 (87) Pulse Ox 95 94 93 O2 Delivery Room Air Room Air Room Air Room Air 06/19/17 06/19/17 06/19/17 06/19/17 06:09 08:00 09:46 11:00 Temp 98.0 98.3 Pulse 79 91 Resp 16 18 B/P (MAP) 129/85 (100) 134/84 (101) Pulse Ox 96 97 95 O2 Delivery Room Air Room Air Room Air Room Air Intake and Output 06/18/17 06/18/17 06/19/17 15:00 23:00 07:00 Intake Total 600 ml 360 ml 125 ml Balance 600 ml 360 ml 125 ml IDALMIS GALE APERTURE MASK ETCHER June 19, 2017 13:20
--- NOTE | 2017-06-19 13:41 | RAD ---
MR#: [id number] Date of Study: 06/18/2017 Ordering Physician: IDALMIS GALE Referring Physician: ROBBY GOLD Tech: CAN Summers APPROVED REPORT Test Type: Pharmacological Stress Nurse/Tech: CAN Summers Test Indications: Chest pain Cardiac History: COPD Medications: see EHR Medical History: see EHR Resting ECG: SR Resting Heart Rate: 86 bpm Resting Blood Pressure: 132/89mmHg Pretest Chest Pain: None Nurse/Tech Notes Consent: The procedure was explained to the patient in lay terms. Informed consent was witnessed. Eliseo eout was entered into [employer]. History and Stress Test performed by CAN Summers Pharm. Details Pharmacologic stress testing was performed using Dobutamine with a maximal infusion of 20 mcg/mg/min. There was low-level exercise performed along with the infusion POST EXERCISE Reason for Termination: Reached target heart rate Target HR: 136 Max HR: 159 bpm 99% of Maximum Predicted HR: 160 bpm Max Blood Pressure: 147/81mmHg Blood Pressure response to exercise: Normal blood pressure response during stress. Chest Pain: No. INTERPRETATION Stress EKG Conclusion: Baseline EKG showed sinus rhythm. Non diagnostic changes at peak stress. No arrhythmias. Imaging Protocol IMAGE PROTOCOL: Rest Tc-99m/stress Tc-99m 2 days Rest: Stress: Viability: Radiopharm.Tc99m [id number] Sestamibi Dose32.3mCi 33.9mCi Duration 12min. 12min. Img Date 06/18/2017 06/19/2017 Inj-Img [id number]. 60min. Rest Admin Site:IV - Right ForearmAdministrator: CAN Summers Stress Admin Site: IV - Right ForearmAdministrator: CAN Summers STRESS DATA End Diast. Vol.82.0mlAv. Heart Rate97.0bpm LVEDV index BSA1.0mlCardiac Output0.1L/min End Syst. Vol.36.0mlCO Index BSA4.4L/min LVESV index BSA1.0mlMyocardial Ufsu105.0g Eject. Qtqbpweg44.0% Stress Rates Pk. Fill Rate2.66EDV/secLVtime Pk. Fill 111.94msec Pk. Empty Rate4.38ESV/secLVtime Pk. Divuq065.84msec /3 Pk. Fill1.62EDV/sec Stress Scores Regional WT0.00Summed WT4.00 Regional WM0.00Summed WM9.00 LV Perfusion Scintigraphic images showed small reversible defect involving the distal anterior wall consistent wit h ischemia. Also seen was transient ischemic dilatation stress images suggestive of balanced ischemia . Wall Motion Normal left ventricular systolic function with ejection fraction calculated at 56%. LV Perf. Quant 17 Seg. SSS6.00 17 Seg. SRS1.00 17 Seg. SDS5.00 Stress Defect Extent (% LAD)10.60Rest Defect Extent (% LAD)0.00Rev. Defect Extent (% LAD)10.60 Stress Defect Extent (% LCX) 20.00Rest Defect Extent (% LCX)13.80Rev. Defect Extent (% LCX)1.30 Stress Defect Extent (% RCA)1.10Rest Defect Extent (% RCA)0.00Rev. Defect Extent (% RCA)1.10 Stress Defect Extent (% MARTI)11.10Rest Defect Extent (% MARTI)2.80Rev. Defect Extent (% MARTI)5.40 Conclusion 1. Dobutamine infusion cardioisotope stress test showed small amount of distal anterior wall ischemia associated with transient ischemic dilatation. 2. Normal left ventricular systolic function with ejection fraction calculated at 56%. 3. Consider cardiac catheterization if clinical suspicion high. Signed by : Antonio Russo, Electronically Approved : 06/19/2017 13:40:08
[2017-06-19] MEDS ORDERED: POTASSIUM CHLORIDE 20 MEQ TABLET.ER. PO ONE ×2 (14:45)
--- NOTE | 2017-06-19 19:46 | DS ---
DATE OF DISCHARGE: HOSPITAL COURSE: The patient is a 61-year-old female patient, who was admitted with chest pain. She has had 3 sets of cardiac enzymes that ruled out myocardial infarction. Her echocardiogram showed that she has normal left ventricular systolic function and wall motion. However, she has dobutamine nuclear medicine scan, which basically showed that the dobutamine infusion ____ isotope stress test showed small amount of distal anterior wall ischemia, associated transient ischemic dilatation. She has normal left ventricular systolic function, ejection fraction calculated at 56%. The firebrick layer recommended cardiac catheterization for high clinical suspicion and therefore, the decision was made to transfer her to [facility] given that she has underlying COPD, we will consult the pricing intern for evaluation prior to the cardiac catheterization. PHYSICAL EXAMINATION: GENERAL: When I examined her this afternoon, she looked well and was clearly in no apparent respiratory distress, pale, but no jaundice, cyanosis, or thyromegaly. No jugular venous distension. No lower limb edema. VITAL SIGNS: Her heart rate was 91, blood pressure was 134/84, temperature was 98.3, respiratory rate was 18 and oxygen saturation was 95%. HEAD, EYES, EARS, NOSE AND THROAT: Normocephalic, atraumatic. NECK: Supple. HEART: Showed normal first and second heart sounds with no gallop, rub or murmur. CHEST: Clear to auscultation. No crepitation or rhonchi. ABDOMEN: Distended, soft, nontender. NEUROLOGIC: She is awake, alert, and responding appropriately. Cranial nerves intact. She moves extremities without difficulty. She ambulates without assistance or assistive devices. Her intake over the last 24 hours was 1715. No output was recorded. LABORATORY DATA: As of this morning showed a white cell count of 6900, hemoglobin 13, hematocrit 38, MCV 86 and platelet count of 225,000. Her chemistry showed a serum sodium of 144, potassium 3, chloride 106, bicarbonate 28, anion gap of 10, BUN 12, creatinine 0.8, estimated GFR was 73 mL per minute. Her glucose ____, calcium was 9.1. Total bilirubin, AST, ALT, alkaline phosphatase were normal. Her total protein was 6.4, albumin was 3.1. Her prothrombin time was 9.5. INR of 0.9 ____. Her APTT was 27. D-dimer was 0.98. Urinalysis was unremarkable and toxic screen was positive for cannabinoids. She has had a chest x-ray, which showed no acute cardiopulmonary abnormalities. Her CT angio of the chest was done because of high D-dimer and chest pain, showed no central pulmonary emboli, but some limitation peripherally secondary to motion, scattered nodules are seen throughout the bilateral lungs, measuring up to approximately 1 cm in size. Many of these are similar in appearance when compared to prior studies with a couple of them appear slightly more prominent, may be helpful to obtain a followup exam in a few months to ensure no growth given presence of these findings. Has some apparent fullness of the esophagus, would correlate with symptoms in the region to ensure that there is not a pathological cause such as esophagitis or esophageal lesion. There is some fullness of soft tissue of the partially visualized left breast in the retroareolar region, could be secondary to prominent breast tissue, but if the patient has not had a recent mammogram, may be helpful to obtain one to further evaluate and ensure that there is enough pathologic causes. She will be transferred to [facility] to continue on Lovenox 40 mg subcutaneously twice a day, montelukast 10 mg at bedtime, theophylline 600 mg once a day. She is on Myrbetriq 50 mg daily. She is on linaclotide 290 mcg once a day for Linzess, citalopram hydrobromide for Celexa 40 mg once a day, hydrochlorothiazide 25 mg once a day, clonazepam 1 mg b.i.d., aspirin 81 mg daily, Pulmicort 0.5 mg twice a day, Protonix 40 mg once a day, levothyroxine sodium 112 mcg once a day, Tylenol 650 mg daily every 6 hours, albuterol sulfate 2.5 mg in 3 mL by nebulizer every 2 hours as needed and morphine sulfate 2 mg IV every 4 hours as needed. FINAL DISCHARGE DIAGNOSES: Positive stress test for her to be transferred to [facility] for cardiac catheterization, with ____ chronic respiratory failure secondary to chronic obstructive pulmonary disease exacerbation, dyslipidemia, gastroesophageal reflux disease, pulmonary nodules and lymphadenopathy, left breast soft tissue mass. We will consult the pricing intern and also a firebrick layer. Continue all the medications. Her potassium is low, we will replenish that. ZAYDA LUZ MD DR: Yamila JOB#: [id number] / [id number]
== END 2017-06-19 16:50 | disposition short-term general hospital (02) | DRG 191 ==
LOC: ER 17:30 → 1 SOUTH 21:30
PROVIDERS: ADMIT Internal Medicine; ATTEND Internal Medicine
PROC: 4A02XM4 Measurement of Cardiac Total Activity, External Approach (ICD-10-PCS; principal; 2017-06-18)
PROC: 3E073KZ Introduction of Other Diagnostic Substance into Coronary Artery, Percutaneous Approach (ICD-10-PCS; 2017-06-18)
DX: J44.1 Chronic obstructive pulmonary disease with (acute) exacerbation (principal); J96.10 Chronic respiratory failure, unspecified whether with hypoxia or hypercapnia; I25.89 Other forms of chronic ischemic heart disease; E78.5 Hyperlipidemia, unspecified; K21.9 Gastro-esophageal reflux disease without esophagitis; E03.9 Hypothyroidism, unspecified; E78.00 Pure hypercholesterolemia, unspecified; F12.90 Cannabis use, unspecified, uncomplicated; F41.9 Anxiety disorder, unspecified; I10 Essential (primary) hypertension; E87.6 Hypokalemia; R59.1 Generalized enlarged lymph nodes; R91.8 Other nonspecific abnormal finding of lung field; R92.8 Other abnormal and inconclusive findings on diagnostic imaging of breast; Z82.49 Family history of ischemic heart disease and other diseases of the circulatory system; Z87.891 Personal history of nicotine dependence; Z88.8 Allergy status to other drugs, medicaments and biological substances; Z79.899 Other long term (current) drug therapy
CPT/HCPCS: 36415; 71046; 71275; 78452; 80048; 80053; 80061; 80076; 80307; 81001; 82553; 83036; 83690; 83735; 83880; 84443; 84484; 85025; 85027; 85379; 85610; 85730; 93005; 93017; 93306; 93970; 94640; 96372; 96374; 96375; 96376; 99406; A9500; G0238; J1250; J1650; J2405; J7042; J7120; J7613; J7620; J7626; Q9967; 99285-25; G0479; J7030

== ENCOUNTER → 2017-06-23 | Outpatient (CLI) | payer MEDICARE ==
[2017-06-19 11:00] VITALS: BP 134/84
[~2017-06-23] MED LIST: ALBU18HF IH; ALBU6.7H IH; BUDE0.5A11 IH; BUDE10.22 IH; CITA40TA5 PO; CLON1TAB3 PO; ESOM40CA PO; HYDR25TA9 PO; IBUP100O25 PO; LEVO112T4 PO; LINA290C PO; MIRA50TA PO; THEO600T PO; ZAFI20TA11 PO
--- NOTE | 2017-06-23 13:55 | RAD ---
DATE: 07/03/2017 EXAM: MAMMO HERRERA SCREENING BILATERAL HISTORY: Routine screening COMPARISON: 06/10/2016 This study was interpreted with the benefit of Computerized Aided Detection (CAD). The breast parenchyma is heterogeneously dense, which could reduce sensitivity of mammography. Breast parenchyma level C. FINDINGS: 2-D and 3-D tomosynthesis imaging was performed in CC and MLO projections. Small smooth benign-appearing nodules in the lateral aspects of both breasts appear unchanged. No new or enlarging breast densities are seen. Minimal benign calcification is present. No suspicious microcalcifications have developed. IMPRESSION: Stable mammograms without evidence of malignancy. BI-RADS CATEGORY: 2 BENIGN FINDING(S) RECOMMENDED FOLLOW-UP: 12M 12 MONTH FOLLOW-UP PQRS compliance statement: Patient information was entered into a reminder system with a target due date for the next mammogram. Mammography is a sensitive method for finding small breast cancers, but it does not detect them all and is not a substitute for careful clinical examination. A negative mammogram does not negate a clinically suspicious finding and should not result in delay in biopsying a clinically suspicious abnormality. "Our facility is accredited by the [employer] Mammography Program."
== END | disposition home or self-care (01) ==
LOC: MAMMO 10:48
PROVIDERS: ATTEND Family Medicine
DX: Z12.31 Encounter for screening mammogram for malignant neoplasm of breast (principal); I10 Essential (primary) hypertension; E03.9 Hypothyroidism, unspecified; E78.00 Pure hypercholesterolemia, unspecified; E78.5 Hyperlipidemia, unspecified; J44.1 Chronic obstructive pulmonary disease with (acute) exacerbation
CPT/HCPCS: 77063; 77067

== ENCOUNTER → 2018-03-04 | Outpatient (CLI) | payer MEDICARE ==
[~2018-03-04] MED LIST changes: -ALBU18HF IH; +ALBU2.5V8 IH; -ALBU6.7H IH; +CLON1TAB11 PO; -CLON1TAB3 PO; +HYDR-2145 PO; -HYDR25TA9 PO
--- NOTE | 2018-03-04 17:12 | RAD ---
Chest, 2 views, 03/04/2018: HISTORY: Cough and shortness of breath Comparison is made to a study from 06/16/2017. The heart size and pulmonary vascularity are normal. There is calcific plaquing and tortuosity of the thoracic aorta. No pulmonary infiltrate is seen. There is no evidence of pleural fluid. Mild spurring is present in the spine. IMPRESSION: No acute cardiopulmonary abnormality is detected. Electronically signed by: Christopher Dorman MD (03/04/2018 5:07 PM) [facility]
== END | disposition home or self-care (01) ==
LOC: RAD 13:33
PROVIDERS: ATTEND Family Medicine
DX: R06.02 Shortness of breath (principal); J44.1 Chronic obstructive pulmonary disease with (acute) exacerbation
CPT/HCPCS: 71046

== ENCOUNTER → 2018-07-14 | Outpatient (CLI) | payer MEDICARE ==
--- NOTE | 2018-07-14 11:14 | RAD ---
DATE: 07/14/2018 EXAM: MAMMO HERRERA SCREENING BILATERAL HISTORY: Routine screening COMPARISON: 07/03/2017 This study was interpreted with the benefit of Computerized Aided Detection (CAD). Breast Density: HETERO The breast parenchyma is heterogenously dense, which could reduce sensitivity of mammography. Breast parenchyma level C. FINDINGS: 2-D and 3-D tomosynthesis imaging was performed in CC and MLO projections. There are smooth benign-appearing lymph node type densities in the lateral aspects of both breasts. No new or enlarging breast densities are seen. Benign type calcifications are present. No suspicious microcalcifications have developed. IMPRESSION: Stable mammograms without evidence of malignancy. BI-RADS CATEGORY: 2 BENIGN FINDING(S) RECOMMENDED FOLLOW-UP: 12M 12 MONTH FOLLOW-UP PQRS compliance statement: Patient information was entered into a reminder system with a target due date for the next mammogram. Mammography is a sensitive method for finding small breast cancers, but it does not detect them all and is not a substitute for careful clinical examination. A negative mammogram does not negate a clinically suspicious finding and should not result in delay in biopsying a clinically suspicious abnormality. "Our facility is accredited by the [employer] Mammography Program."
== END | disposition home or self-care (01) ==
LOC: MAMMO 08:42
PROVIDERS: ATTEND Family Medicine
DX: Z12.31 Encounter for screening mammogram for malignant neoplasm of breast (principal); N64.89 Other specified disorders of breast
CPT/HCPCS: 77063; 77067

== ENCOUNTER 2018-09-24 07:46 | Emergency (ER) | payer MEDICARE ==
[~2018-09-24] VITALS: Ht 170.2 cm; Wt 108.9 kg
[2018-09-24] MEDS ORDERED: ASPIRIN 81 MG TAB.CHEW PO ONE (08:00)
[2018-09-24] MEDS: NITROGLYCERIN SUBLINGUAL 0.4 MG BOTTLE OF 25. SL PRN ×3 (08:06→08:38)
--- NOTE | 2018-09-24 08:22 | PHYS DOC ---
Past History Past Medical History: Anxiety, COPD, GERD, Hypothyroid, Other Past Surgical History: No Surgical History Alcohol Use: None Drug Use: Marijuana Social History Narrative: last week Adult General Chief Complaint Chief Complaint: CHEST PAIN HPI HPI 62-year-old female presents with chest pain, nausea, vomiting. This started 2 days ago. It started with a central chest pain that she describes as a pressure sensation. It was accompanied by shortness of breath. This was followed by intermittent vomiting. The vomiting has become more bothersome today. She has been able keep down some fluids, but no solids. The chest pain is still there but is less severe at this time. Nothing seems to make it better or worse. She feels like she has overall crampiness and fatigue. Patient had a stress test about 1 year ago that was reported negative. No other cardiac history. She denies fever or chills. Review of Systems Review of Systems Constitutional: Denies fever or chills [] Eyes: Denies change in visual acuity, redness, or eye pain [] HENT: Denies nasal congestion or sore throat [] Respiratory: shortness of breath [] Cardiovascular: No additional information not addressed in HPI [] GI: abdominal pain, nausea, vomiting. Denies bloody stools or diarrhea [] : Denies dysuria or hematuria [] Musculoskeletal: Denies back pain or joint pain [] Integument: Denies rash or skin lesions [] Neurologic: Denies headache, focal weakness or sensory changes [] Endocrine: Denies polyuria or polydipsia [] All other systems were reviewed and found to be within normal limits, except as documented in this note. Current Medications Current Medications Current Medications Medications (Trade) Dose Ordered Sig/Maegan Start Time Stop Time Status Last Admin Dose Admin Aspirin (Children'S Aspirin) 324 mg 1X ONCE 09/24/18 08:00 09/24/18 08:08 DC 09/24/18 08:06 324 MG Nitroglycerin (Nitrostat) 0.4 mg PRN Q5MIN PRN 09/24/18 08:00 09/25/18 07:59 09/24/18 08:06 0.4 MG Allergies Allergies Allergies Coded Allergies Type Severity Reaction Last Updated Verified meperidine Allergy Intermediate 09/24/18 Yes Physical Exam Physical Exam Constitutional: Well developed, obese, well nourished, no acute distress, non- toxic appearance. [] HENT: Normocephalic, atraumatic, bilateral external ears normal, oropharynx moist, no oral exudates, nose normal. [] Eyes: PERRLA, EOMI, conjunctiva normal, no discharge. [] Neck: Normal range of motion, no tenderness, supple, no stridor. [] Cardiovascular:Heart rate regular rhythm, no murmur [] Lungs & Thorax: Bilateral breath sounds clear to auscultation [] Abdomen: Bowel sounds normal, soft, no tenderness, no masses, no pulsatile m asses. [] Skin: Warm, dry, no erythema, no rash. [] Back: No tenderness, no CVA tenderness. [] Extremities: No tenderness, no cyanosis, no clubbing, ROM intact, no edema. [] Neurologic: Alert and oriented X 3, normal motor function, normal sensory function, no focal deficits noted. [] Psychologic: Affect normal, judgement normal, mood normal. [] Current Patient Data Vital Signs Vital Signs Date Time Temp Pulse Resp B/P (MAP) Pulse Ox O2 Delivery O2 Flow Rate FiO2 09/24/18 08:06 62 163/90 09/24/18 07:50 98.1 18 95 Room Air EKG EKG Sinus rhythm, rate 61, normal axis, no ST elevations or depressions.[] Radiology/Procedures Radiology/Procedures [] Impressions: Examination: PORTABLE CHEST 1V History: Chest pain Comparison/Correlation: 03/04/2018 two-view chest x-ray exam Findings: Portable frontal view chest was obtained. Heart size and pulmonary vasculature are normal. No infiltrate or pleural effusion. No pneumothorax. Impression: No active disease. Electronically signed by: Tito Sifuentes MD (09/24/2018 8:42 AM) [facility] DICTATED AND SIGNED BY: TITO SIFUENTES MD DATE: 09/24/18 0842 CC: CHUCK RAMON DO; ARACELI WADE APRN ~ Course & Med Decision Making Course & Med Decision Making Pertinent Labs and Imaging studies reviewed. (See chart for details) An EKG was performed and aspirin was given to the patient upon arrival. The p atient's EKG is unremarkable. Her labs are unremarkable. Her troponin is negative. The nitroglycerin did not help patient's pain. Her heart score is 82. She still rates it a 5 out of 10. She was able to fall sleep with this pain. We will try a GI cocktail as the patient has GERD at baseline. Her chest x-ray is negative for acute findings. The patient was able to sleep in the emergency room. Her heart score is reassuring and indicates she can't be discharged. I do not believe her discomfort is associated with cardiopulmonary cause. This is likely viral illness and her GERD. I will discharge her with Zofran. She is stable for discharge at this time. [] Dragon Disclaimer Dragon Disclaimer This electronic medical record was generated, in whole or in part, using a voice recognition dictation system. The HEART Score for CP Pts HEART Score for Chest Pain: HEART Score for Chest Pain Response (Comments) Value History Slighlty/Non-Suspicious 0 ECG Normal 0 Age >45 - < 65 1 Risk Factors 1 or 2 Risk Factors 1 Troponin < Normal Limit 0 Total 2 Risk Factors: Risk Factors: DM, Current or recent (<one month) smoker, HTN, HLP, family history of CAD, obesity. Risk Scores: Score 0 - 3: 2.5% MACE over next 6 weeks - Discharge Home Score 4 - 6: 20.3% MACE over next 6 weeks - Admit for Clinical Observation Score 7 - 10: 72.7% MACE over next 6 weeks - Early Invasive Strategies Departure Departure: Impression: Primary Impression: Chest pain Additional Impressions: Vomiting GERD (gastroesophageal reflux disease) Disposition: 01 HOME, SELF-CARE Condition: STABLE Referrals: ARACELI WADE APRN (PCP) Scripts Ondansetron (ONDANSETRON ODT) 4 Mg Tab.rapdis 1 TAB PO PRN Q6-8HRS PRN for VOMITING, #16 TAB Prov: CHUCK RAMON DO 09/24/18 Problem Qualifiers Primary Impression: Chest pain Chest pain type: unspecified Qualified Codes: R07.9 - Chest pain, unspecified Additional Impressions: Vomiting Vomiting type: unspecified Vomiting Intractability: non-intractable Nausea presence: with nausea Qualified Codes: R11.2 - Nausea with vomiting, unspecified GERD (gastroesophageal reflux disease) Esophagitis presence: without esophagitis Qualified Codes: K21.9 - Gastro- esophageal reflux disease without esophagitis CHUCK RAMON DO Sep 24, 2018 08:22
[2018-09-24 08:30] LABS: BASO % 0 % (0-3); EOS % 0 % (0-3); HEMATOCRIT 42.8 % (36.0-47.0); HEMOGLOBIN 13.8 g/dL (12.0-15.5); LYMPH # 0.8 x10^3/uL (1.0-4.8); LYMPH % 7 % (24-48); MEAN CORPUSCULAR HEMOGLOBIN 27 pg (25-35); MEAN CORPUSCULAR HGB CONC 32 g/dL (31-37); MEAN CORPUSCULAR VOLUME 85 fL (79-100); MONO # 0.3 x10^3/uL (0.0-1.1); MONO % 2 % (0-9); NEUT # 10.3 x10^3uL (1.8-7.7); NEUT % 90 % (31-73); PLATELET COUNT 289 x10^3/uL (140-400); RED BLOOD COUNT 5.06 x10^6/uL (3.50-5.40); RED CELL DISTRIBUTION WIDTH 14.8 % (11.5-14.5); WHITE BLOOD COUNT 11.5 x10^3/uL (4.0-11.0)
[2018-09-24] MEDS ORDERED: ONDANSETRON PF 4 MG/2 ML VIAL. IV ONE (08:30)
[2018-09-24] MEDS ORDERED: IV NORMAL SALINE 1,000ML 1,000 ML IV ONE (08:30)
[2018-09-24 08:38] LABS: ALBUMIN 3.9 g/dL (3.4-5.0); ALBUMIN/GLOBULIN RATIO 1.2 (1.0-1.7); CALCIUM 9.6 mg/dL (8.5-10.1); CREATININE 0.9 mg/dL (0.6-1.0); GFR 63.7; POTASSIUM 3.5 mmol/L (3.5-5.1); TOTAL BILIRUBIN 0.3 mg/dL (0.2-1.0); TOTAL PROTEIN 7.2 g/dL (6.4-8.2)
--- NOTE | 2018-09-24 08:45 | RAD ---
Examination: PORTABLE CHEST 1V History: Chest pain Comparison/Correlation: 03/04/2018 two-view chest x-ray exam Findings: Portable frontal view chest was obtained. Heart size and pulmonary vasculature are normal. No infiltrate or pleural effusion. No pneumothorax. Impression: No active disease. Electronically signed by: Tito Lepe MD (09/24/2018 8:42 AM) [facility]
[2018-09-24] MEDS ORDERED: LIDO:MAALOX 1:1 20 ML SINGLE DOSE. PO ONE (09:00)
[2018-09-24] MEDS ORDERED: ONDA4TAB12 PO (09:52)
[2018-09-24 10:00] VITALS: BP 155/77
--- NOTE | 2018-09-24 15:40 | EKG ---
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
== END 2018-09-24 10:07 | disposition home or self-care (01) ==
LOC: ER 07:46
DX: K21.9 Gastro-esophageal reflux disease without esophagitis (principal); R11.2 Nausea with vomiting, unspecified; J44.9 Chronic obstructive pulmonary disease, unspecified; E03.9 Hypothyroidism, unspecified; Z88.8 Allergy status to other drugs, medicaments and biological substances
CPT/HCPCS: 36415; 71045; 80053; 84484; 85025; 93005; 96361; 96374; 99285; J2405; J7030

== ENCOUNTER 2019-04-07 12:02 | Emergency (ER) | payer MEDICARE ==
[~2019-04-07] VITALS: Ht 170.2 cm; Wt 105.0 kg
[~2019-04-07 12:02] MED LIST changes: +ONDA4TAB12 PO
[2019-04-07] MEDS ORDERED: DEXAMETHASONE SOD PHOS 4 MG/ML VIAL IVP ONE (13:30)
[2019-04-07] MEDS ORDERED: IV NORMAL SALINE 1,000ML 1,000 ML IV ONE (13:30)
[2019-04-07] MEDS ORDERED: IPRATRPIUM/ALBUTEROL 0.5/2.5MG 3 ML NEBU. NEB ONE (13:30)
[2019-04-07 14:01] LABS: BASO % 0 % (0-3); EOS # 0.2 x10^3/uL (0.0-0.7); EOS % 2 % (0-3); HEMOGLOBIN 14.8 g/dL (12.0-15.5); LYMPH # 1.7 x10^3/uL (1.0-4.8); LYMPH % 17 % (24-48); MEAN CORPUSCULAR HEMOGLOBIN 28 pg (25-35); MEAN CORPUSCULAR HGB CONC 33 g/dL (31-37); MEAN CORPUSCULAR VOLUME 86 fL (79-100); MONO # 0.8 x10^3/uL (0.0-1.1); MONO % 7 % (0-9); NEUT # 7.5 x10^3uL (1.8-7.7); NEUT % 73 % (31-73); PLATELET COUNT 330 x10^3/uL (140-400); RED BLOOD COUNT 5.23 x10^6/uL (3.50-5.40); RED CELL DISTRIBUTION WIDTH 14.7 % (11.5-14.5); WHITE BLOOD COUNT 10.2 x10^3/uL (4.0-11.0)
[2019-04-07 14:12] LABS: CALCIUM 9.4 mg/dL (8.5-10.1); CREATININE 0.9 mg/dL (0.6-1.0); GFR 63.4; POTASSIUM 3.6 mmol/L (3.5-5.1)
[2019-04-07 14:21] LABS: INFLUENZA A PATIENT NEGATIVE (NEGATIVE); INFLUENZA B PATIENT NEGATIVE (NEGATIVE)
[2019-04-07 14:28] LABS: ALBUMIN 4.1 g/dL (3.4-5.0); ALBUMIN/GLOBULIN RATIO 1.3 (1.0-1.7); TOTAL BILIRUBIN 0.2 mg/dL (0.2-1.0); TOTAL PROTEIN 7.2 g/dL (6.4-8.2)
--- NOTE | 2019-04-07 14:30 | RAD ---
CHEST PA LATERAL History: Dyspnea Comparison: September 24, 2018 Findings: No consolidation or pleural effusion. Normal heart size. No pneumothorax. Left basilar linear atelectasis or scarring. Impression: 1. No acute cardiopulmonary process. Electronically signed by: Enrique Rashid DO (04/07/2019 2:27 PM) [id number]
[2019-04-07 14:44] LABS: BILIRUBIN,URINE NEG (NEG); CLARITY,URINE HAZY; COLOR,URINE YELLOW; GLUCOSE,URINE NEG (NEG)
[2019-04-07 14:45] LABS: BACTERIA,URINE FEW /HPF (0-FEW); NITRITE,URINE NEG (NEG); RBC,URINE 0 /HPF (0-2); SQUAMOUS EPITHELIAL CELL,UR FEW /LPF; WBC,URINE 0 /HPF (0-4)
[2019-04-07] MEDS ORDERED: PRED20TA PO (15:02)
--- NOTE | 2019-04-07 15:02 | PHYS DOC ---
Past History Past Medical History: Anxiety, Asthma, COPD, Depression, GERD, Hypothyroid, Other Additional Past Medical Histor: stress incontinence; "retains water" Past Surgical History: No Surgical History Smoking: Quit Greater Than 1 Year Alcohol Use: None Drug Use: Marijuana Adult General Chief Complaint Chief Complaint: FLU SYMPTOM HPI HPI 63-year-old female presents with report of several week history of cough and cold-like symptoms. Patient reports she had been exposed to grandkids with influenza B around the beginning of this month and had called her doctor and was placed on empiric Tamiflu due to exposure. Patient does report compliance with this medication. Patient does have a history of asthma and COPD. Patient presents to the ER today due to continuation of her symptoms and not feeling like it is getting any better. Denies current smoking. Denies trauma. Denies leg swelling or calf tenderness. Denies chest pain. Reports initially had some upper respiratory symptoms including nasal congestion but that has since resolved. Denies any recent fever. Patient also reports some increased urinary frequency but denies dysuria. Review of Systems Review of Systems Constitutional: Denies fever or chills; reports generalized malaise Eyes: Denies change in visual acuity, or eye pain HENT: Denies current nasal congestion or sore throat Respiratory: Reports cough and wheezing Cardiovascular: Denies chest pain or palpitations GI: Denies abdominal pain, nausea, or vomiting : Denies dysuria; reports increased urinary frequency Musculoskeletal: Denies back pain or joint pain Integument: Denies rash or skin lesions Neurologic: Denies headache, focal weakness or sensory changes Complete systems were reviewed and found to be within normal limits, except as documented in this note. Current Medications Current Medications Current Medications Medications (Trade) Dose Ordered Sig/Maegan Start Time Stop Time Status Last Admin Dose Admin Albuterol/ Ipratropium (Duoneb) 3 ml 1X ONCE 04/07/19 13:30 04/07/19 13:32 DC 04/07/19 13:30 3 ML Dexamethasone Sodium Phosphate (Decadron) 10 mg 1X ONCE 04/07/19 13:30 04/07/19 13:32 DC 04/07/19 14:03 10 MG Sodium Chloride 1,000 ml @ 1,000 mls/hr 1X ONCE 04/07/19 13:30 04/07/19 14:29 DC 04/07/19 14:02 1,000 MLS/HR Allergies Allergies Allergies Coded Allergies Type Severity Reaction Last Updated Verified meperidine Allergy Intermediate 04/07/19 Yes Physical Exam Physical Exam Constitutional: Well developed, well nourished, no acute distress, non-toxic appearance HENT: Normocephalic, atraumatic, oropharynx moist Eyes: Conjunctiva normal, no discharge Neck: Normal range of motion, no tenderness, supple, no meningeal signs Cardiovascular: Heart rate normal, regular rhythm Lungs & Thorax: Bilateral breath sounds equal on auscultation however expiratory wheezes noted Abdomen: Soft, no tenderness Skin: Warm, dry, no erythema Back: No tenderness, no CVA tenderness Extremities: No tenderness, ROM intact, no edema Neurologic: Alert and oriented X 3, no focal deficits noted Psychologic: Affect normal, judgement normal Current Patient Data Vital Signs Vital Signs Date Time Temp Pulse Resp B/P (MAP) Pulse Ox O2 Delivery O2 Flow Rate FiO2 04/07/19 14:08 95 Room Air 04/07/19 14:05 120 18 124/81 (95) 04/07/19 12:15 98.1 Lab Results Laboratory Tests Test 04/07/19 13:40 04/07/19 13:47 04/07/19 13:50 Urine Collection Type Unknown Urine Color Yellow Urine Clarity Hazy Urine pH 6.5 Urine Specific [place] 1.025 Urine Protein Neg (NEG-TRACE) Urine Glucose (UA) Neg mg/dL (NEG) Urine Ketones (Stick) Neg mg/dL (NEG) Urine Blood Neg (NEG) Urine Nitrite Neg (NEG) Urine Bilirubin Neg (NEG) Urine Urobilinogen Dipstick 1.0 mg/dL (0.2 mg/dL) Urine Leukocyte Esterase Neg (NEG) Urine RBC 0 /HPF (0-2) Urine WBC 0 /HPF (0-4) Urine Squamous Epithelial Cells Few /LPF Urine Bacteria Few /HPF (0-FEW) White Blood Count 10.2 x10^3/uL (4.0-11.0) Red Blood Count 5.23 x10^6/uL (3.50-5.40) Hemoglobin 14.8 g/dL (12.0-15.5) Hematocrit 45.0 % (36.0-47.0) Mean Corpuscular Volume 86 fL (79-100) Mean Corpuscular Hemoglobin 28 pg (25-35) Mean Corpuscular Hemoglobin Concent 33 g/dL (31-37) Red Cell Distribution Width 14.7 % (11.5-14.5) H Platelet Count 330 x10^3/uL (140-400) Neutrophils (%) (Auto) 73 % (31-73) Lymphocytes (%) (Auto) 17 % (24-48) L Monocytes (%) (Auto) 7 % (0-9) Eosinophils (%) (Auto) 2 % (0-3) Basophils (%) (Auto) 0 % (0-3) Neutrophils # (Auto) 7.5 x10^3uL (1.8-7.7) Lymphocytes # (Auto) 1.7 x10^3/uL (1.0-4.8) Monocytes # (Auto) 0.8 x10^3/uL (0.0-1.1) Eosinophils # (Auto) 0.2 x10^3/uL (0.0-0.7) Basophils # (Auto) 0.0 x10^3/uL (0.0-0.2) Sodium Level 143 mmol/L (136-145) Potassium Level 3.6 mmol/L (3.5-5.1) Chloride Level 104 mmol/L (98-107) Carbon Dioxide Level 25 mmol/L (21-32) Anion Gap 14 (6-14) Blood Urea Nitrogen 17 mg/dL (7-20) Creatinine 0.9 mg/dL (0.6-1.0) Estimated GFR (Cockcroft-Gault) 63.4 BUN/Creatinine Ratio 19 (6-20) Glucose Level 104 mg/dL (70-99) H Lactic Acid Level 0.9 mmol/L (0.4-2.0) Calcium Level 9.4 mg/dL (8.5-10.1) Magnesium Level 2.0 mg/dL (1.8-2.4) Total Bilirubin 0.2 mg/dL (0.2-1.0) Aspartate Amino Transferase (AST) 18 U/L (15-37) Alanine Aminotransferase (ALT) 24 U/L (14-59) Alkaline Phosphatase 115 U/L (46-116) Creatine Kinase 63 U/L (26-192) Creatine Kinase MB (Mass) 0.7 ng/mL (0.0-3.6) Creatine Kinase MB Relative Index 1.1 % (0-4) Troponin I Quantitative < 0.017 ng/mL (0-0.055) EU-Hen-I-Type Natriuretic Peptide 59 pg/mL (0-124) Total Protein 7.2 g/dL (6.4-8.2) Albumin 4.1 g/dL (3.4-5.0) Albumin/Globulin Ratio 1.3 (1.0-1.7) Influenza Type A (Rapid) Negative (NEGATIVE) Influenza Type B (Rapid) Negative (NEGATIVE) EKG EKG @1352 Sinus tachycardia at 109bpm, NO ST elevation, baseline artifact noted Radiology/Procedures Radiology/Procedures PROCEDURE: CHEST PA & LATERAL CHEST PA LATERAL History: Dyspnea Comparison: September 24, 2018 Findings: No consolidation or pleural effusion. Normal heart size. No pneumothorax. Left basilar linear atelectasis or scarring. Impression: 1. No acute cardiopulmonary process. Electronically signed by: Enrique Rashid DO (04/07/2019 2:27 PM) [id number] Course & Med Decision Making Course & Med Decision Making Pertinent Labs and Imaging studies reviewed. (See chart for details) patient with past medical history of COPD and asthma presents with 3 week history of continued cough. Reports history of exposure to grandchildren with reported influenza B. Patient had previously taken full dose of Tamiflu empirically. Patient reports continued symptoms and therefore presents to the ER today. Patient afebrile. Oxygen saturation on room air normal. Patient noted to be wheezing. Symptomatic treatment provided with respiratory DuoNeb as well as symptomatic steroid. Labs obtained and posted to chart. Chest x-ray without acute process. EKG stable. Patient also reported some increased urinary frequency. UA negative for signs of infection. Patient stable for discharge with outpatient follow-up with PCP. Discussed findings and plan with patient, who acknowledges understanding and agreement. [employer] voice recognition software utilized. Comfyware Disclaimer Comfyware Disclaimer This electronic medical record was generated, in whole or in part, using a voice recognition dictation system. Departure Departure: Impression: Primary Impression: Acute bronchitis Additional Impression: COPD (chronic obstructive pulmonary disease) Disposition: 01 HOME, SELF-CARE Condition: STABLE Referrals: BRAXTON TRIPATHI DO (PCP) ROSIO KIM MD Patient Instructions: Acute Bronchitis, Olzj-of-Qpnt, Chronic Obstructive Pulmonary Disease, Yqwa-gw-Yvsi Scripts Guaifenesin/Codeine Phosphate (GUAIFENESIN-CODEINE SYRUP) 118 Ml Liquid 10 ML PO Q4HRS PRN for COUGH, #200 ML Prov: JEFFREY PEARSON DO 04/07/19 Albuterol Sulfate (PROAIR HFA INHALER) 8.5 Gm Hfa.aer.ad 2 PUFF IH PRN Q4-6HRS PRN for wheezing, #1 INHALER 0 Refills Prov: JEFFREY PEARSON DO 04/07/19 Albuterol Sulfate (ALBUTEROL SULFATE NEB SOLN) 1.25 Mg/3 Ml Vial.neb 1 VIAL NEB Q4-6HRS PRN for WHEEZING, #75 UNITS Prov: JEFFREY PEARSON DO 04/07/19 Prednisone (PREDNISONE) 20 Mg Tablet 2 TAB PO DAILY for Bronchitis, #8 TAB Start this prescription tomorrow, 04/08/19 Prov: JEFFREY PEARSON DO 04/07/19 Problem Qualifiers Primary Impression: Acute bronchitis Bronchitis organism: unspecified organism Qualified Codes: J20.9 - Acute bronchitis, unspecified Additional Impression: COPD (chronic obstructive pulmonary disease) COPD type: unspecified COPD Qualified Codes: J44.9 - Chronic obstructive pulmonary disease, unspecified JEFFREY PEARSON DO Apr 07, 2019 15:02
[2019-04-07] MEDS ORDERED: ALBU1.25 NEB (15:21)
[2019-04-07] MEDS ORDERED: ALBU2.5V8 IH (15:21)
[2019-04-07] MEDS ORDERED: GUAI118L13 PO (15:21)
[2019-04-07 15:50] VITALS: BP 143/82
--- NOTE | 2019-04-07 17:29 | EKG ---
[address] [address] Test Date: 2019-04-07 Test Time: 13:52:44 Pat Name: CHARAN SMITH Department: Room: Gender: F [place]: : 1955 Requested By: JEFFREY PEARSON Order Number: [id number] Reading MD: Measurements Intervals [place] Rate: 109 P: 34 CT: 118 QRS: -17 QRSD: 76 T: 35 QT: 350 QTc: 473 Interpretive Statements SINUS TACHYCARDIA LEFTWARD AXIS NO SPECIFIC ECG ABNORMALITIES RI6.01 No previous ECG available for comparison
== END 2019-04-07 15:52 | disposition home or self-care (01) ==
LOC: ER 12:02
DX: J44.9 Chronic obstructive pulmonary disease, unspecified (principal); J20.9 Acute bronchitis, unspecified; K21.9 Gastro-esophageal reflux disease without esophagitis; E03.9 Hypothyroidism, unspecified; Z87.891 Personal history of nicotine dependence; Z88.8 Allergy status to other drugs, medicaments and biological substances
CPT/HCPCS: 36415; 71046; 80053; 81001; 82553; 83605; 83735; 83880; 84484; 85025; 87040; 87804; 93005; 94640; 96374; 99285; J1100; J7620; J7030

== ENCOUNTER → 2019-10-29 | Outpatient (CLI) | payer MEDICARE ==
[~2019-10-29] MED LIST changes: +ALBU1.25 NEB; +GUAI118L13 PO; +PRED20TA PO
--- NOTE | 2019-10-29 14:20 | RAD ---
DATE: 10/29/2019 10:05 AM EXAM: MAMMO HERRERA ENCARNACION, BREAST RIGHT HISTORY: 63-year-old woman due for mammographic screening presents with a palpable lump in the medial right breast. It has been present for approximately one month. COMPARISON: 07/14/2018 TECHNIQUE: Bilateral CC and MLO views of the breasts were performed. Bilateral breast tomosynthesis was performed in CC and MLO projections. This study was interpreted with the benefit of Computerized Aided Detection (CAD). Targeted ultrasound of the medial right breast was also performed. FINDINGS: Breast Density: HETERO The breast parenchyma Is heterogeneously dense, which could reduce sensitivity of mammography. Breast parenchyma level C Interval development of oval isodense superficial mass with ill-defined borders in the medial right breast, marked with a BB marker. Targeted ultrasound of this region revealed a parallel orientation 1.5 cm heterogeneous mass in the skin with a hypoechoic stalk extending to the skin surface. IMPRESSION: Benign inflamed sebaceous cyst in the medial right breast. Otherwise negative bilateral mammogram. Recommend clinical management. BI-RADS CATEGORY: 2 BENIGN FINDING(S) RECOMMENDED FOLLOW-UP: 12M 12 MONTH FOLLOW-UP Annual screening mammography is recommended, unless clinically indicated sooner based on symptoms or change in physical exam. Recommend clinical management of this palpable lump, including surgical excision if clinically appropriate. In the absence of any clinically suspicious findings, mammographic screening in one year is recommended. PQRS compliance statement: Patient information was entered into a reminder system with a target due date for the next mammogram. Mammography is a sensitive method for finding small breast cancers, but it does not detect them all and is not a substitute for careful clinical examination. A negative mammogram does not negate a clinically suspicious finding and should not result in delay in biopsying a clinically suspicious abnormality. "Our facility is accredited by the [employer] Mammography Program."
== END | disposition home or self-care (01) ==
LOC: MAMMO 09:59
PROVIDERS: ATTEND Family Medicine
DX: R92.2 Inconclusive mammogram (principal); N60.01 Solitary cyst of right breast
CPT/HCPCS: 76641; 77066; G0279; 77062

== ENCOUNTER 2019-11-26 12:35 | Inpatient (IN) | payer MEDICARE ==
[~2019-11-26] VITALS: Ht 171.4 cm; Wt 101.4 kg
[2019-11-26] MEDS ORDERED: IV NORMAL SALINE 1,000ML 1,000 ML IV ONE (13:00)
--- NOTE | 2019-11-26 13:22 | EKG ---
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
[2019-11-26 13:31] LABS: BASO # 0.1 x10^3/uL (0.0-0.2); BASO % 1 % (0-3); EOS # 0.4 x10^3/uL (0.0-0.7); EOS % 4 % (0-3); HEMATOCRIT 46.1 % (36.0-47.0); HEMOGLOBIN 14.9 g/dL (12.0-15.5); LYMPH # 1.5 x10^3/uL (1.0-4.8); LYMPH % 15 % (24-48); MEAN CORPUSCULAR HEMOGLOBIN 28 pg (25-35); MEAN CORPUSCULAR HGB CONC 32 g/dL (31-37); MEAN CORPUSCULAR VOLUME 88 fL (79-100); MONO # 0.5 x10^3/uL (0.0-1.1); MONO % 5 % (0-9); NEUT # 7.6 x10^3uL (1.8-7.7); NEUT % 76 % (31-73); PLATELET COUNT 266 x10^3/uL (140-400); RED BLOOD COUNT 5.24 x10^6/uL (3.50-5.40); RED CELL DISTRIBUTION WIDTH 15.3 % (11.5-14.5)
--- NOTE | 2019-11-26 13:45 | RAD ---
CHEST AP ONLY History: Reason: tachycardia / Spl. Instructions: / History: Comparison: April 07, 2019 Findings: Mild left basilar linear atelectasis, unchanged. No consolidation or pleural effusion. Normal heart size. No pneumothorax. Impression: 1. No acute cardiopulmonary process. Electronically signed by: Enrique Rashid DO (11/26/2019 1:42 PM) [id number]
[2019-11-26 13:56] LABS: CALCIUM 10.5 mg/dL (8.5-10.1); CREATININE 1.1 mg/dL (0.6-1.0); GFR 50.2; POTASSIUM 3.2 mmol/L (3.5-5.1)
[2019-11-26 14:02] LABS: ALBUMIN 4.1 g/dL (3.4-5.0); ALBUMIN/GLOBULIN RATIO 1.3 (1.0-1.7); TOTAL BILIRUBIN 2.3 mg/dL (0.2-1.0); TOTAL PROTEIN 7.3 g/dL (6.4-8.2)
--- NOTE | 2019-11-26 14:40 | PHYS DOC ---
Past History Past Medical History: Anxiety, Asthma, COPD, Depression, GERD, Hypothyroid, Other Additional Past Medical Histor: stress incontinence; "retains water" Past Surgical History: No Surgical History Smoking: Quit Greater Than 1 Year Alcohol Use: None Drug Use: Marijuana General Adult EDM: Chief Complaint: ABDOMINAL PAIN HPI: HPI: 64-year-old female presents the epigastric dull pain for last couple of days. The pain is a cramping sensation the patient also noticed that her stool has turned white today. She found this very concerning so she came to emergency room. She does not drink alcohol. She denies drug use. She has not had anything like this before. She still has her gallbladder. No history of hepatitis or IV drug use. Review of Systems: Review of Systems: Constitutional: Denies fever or chills Eyes: Denies change in visual acuity HENT: Denies nasal congestion or sore throat Respiratory: Denies cough or shortness of breath Cardiovascular: Denies chest pain or edema GI: Epigastric abdominal pain, nausea, vomiting. White stool. Denies bloody stools or diarrhea : Denies dysuria Musculoskeletal: Denies back pain or joint pain Integument: Denies rash Neurologic: Denies headache, focal weakness or sensory changes Endocrine: Denies polyuria or polydipsia Lymphatic: Denies swollen glands Psychiatric: Denies depression or anxiety Heart Score: Risk Factors: Risk Factors: DM, Current or recent (<one month) smoker, HTN, HLP, family history of CAD, obesity. Risk Scores: Score 0 - 3: 2.5% MACE over next 6 weeks - Discharge Home Score 4 - 6: 20.3% MACE over next 6 weeks - Admit for Clinical Observation Score 7 - 10: 72.7% MACE over next 6 weeks - Early Invasive Strategies Current Medications: Current Meds: Current Medications Medications (Trade) Dose Ordered Sig/Maegan Start Time Stop Time Status Last Admin Dose Admin Sodium Chloride 1,000 ml @ 1,000 mls/hr 1X ONCE 11/26/19 13:00 11/26/19 13:59 DC 11/26/19 13:15 1,000 MLS/HR Allergies: Allergies: Allergies Coded Allergies Type Severity Reaction Last Updated Verified meperidine Allergy Intermediate 04/07/19 Yes Physical Exam: PE: Constitutional: Well developed, well nourished, obese, no acute distress, non- toxic appearance. [] HENT: Normocephalic, atraumatic, bilateral external ears normal, oropharynx moist, no oral exudates, nose normal. [] Eyes: PERRLA, EOMI, conjunctiva normal, no discharge. [] Neck: Normal range of motion, no tenderness, supple, no stridor. [] Cardiovascular: Heart rate regular rhythm, no murmur [] Lungs & Thorax: Bilateral breath sounds clear to auscultation [] Abdomen: Bowel sounds normal, soft, epigastric tenderness, no masses, no pulsatile masses. [] Skin: Warm, dry, no erythema, no rash. [] Back: No tenderness, no CVA tenderness. [] Extremities: No tenderness, no cyanosis, no clubbing, ROM intact, no edema. [] Neurologic: Alert and oriented X 3, normal motor function, normal sensory function, no focal deficits noted. [] Psychologic: Affect normal, judgement normal, mood normal. [] Current Patient Data: Labs: Laboratory Tests Test 11/26/19 13:15 White Blood Count 10.0 x10^3/uL (4.0-11.0) Red Blood Count 5.24 x10^6/uL (3.50-5.40) Hemoglobin 14.9 g/dL (12.0-15.5) Hematocrit 46.1 % (36.0-47.0) Mean Corpuscular Volume 88 fL (79-100) Mean Corpuscular Hemoglobin 28 pg (25-35) Mean Corpuscular Hemoglobin Concent 32 g/dL (31-37) Red Cell Distribution Width 15.3 % (11.5-14.5) H Platelet Count 266 x10^3/uL (140-400) Neutrophils (%) (Auto) 76 % (31-73) H Lymphocytes (%) (Auto) 15 % (24-48) L Monocytes (%) (Auto) 5 % (0-9) Eosinophils (%) (Auto) 4 % (0-3) H Basophils (%) (Auto) 1 % (0-3) Neutrophils # (Auto) 7.6 x10^3uL (1.8-7.7) Lymphocytes # (Auto) 1.5 x10^3/uL (1.0-4.8) Monocytes # (Auto) 0.5 x10^3/uL (0.0-1.1) Eosinophils # (Auto) 0.4 x10^3/uL (0.0-0.7) Basophils # (Auto) 0.1 x10^3/uL (0.0-0.2) Sodium Level 138 mmol/L (136-145) Potassium Level 3.2 mmol/L (3.5-5.1) L Chloride Level 102 mmol/L (98-107) Carbon Dioxide Level 22 mmol/L (21-32) Anion Gap 14 (6-14) Blood Urea Nitrogen 15 mg/dL (7-20) Creatinine 1.1 mg/dL (0.6-1.0) H Estimated GFR (Cockcroft-Gault) 50.2 BUN/Creatinine Ratio 14 (6-20) Glucose Level 167 mg/dL (70-99) H Calcium Level 10.5 mg/dL (8.5-10.1) H Total Bilirubin 2.3 mg/dL (0.2-1.0) H Aspartate Amino Transferase (AST) 238 U/L (15-37) H Alanine Aminotransferase (ALT) 452 U/L (14-59) H Alkaline Phosphatase 590 U/L (46-116) H Troponin I Quantitative < 0.017 ng/mL (0-0.055) Total Protein 7.3 g/dL (6.4-8.2) Albumin 4.1 g/dL (3.4-5.0) Albumin/Globulin Ratio 1.3 (1.0-1.7) Vital Signs: Vital Signs Date Time Temp Pulse Resp B/P (MAP) Pulse Ox O2 Delivery O2 Flow Rate FiO2 11/26/19 12:58 97.2 144 26 118/94 (102) 100 EKG: EKG: [] Radiology/Procedures: Radiology/Procedures: [] Impressions: CHEST AP ONLY History: Reason: tachycardia / Spl. Instructions: / History: Comparison: April 07, 2019 Findings: Mild left basilar linear atelectasis, unchanged. No consolidation or pleural effusion. Normal heart size. No pneumothorax. Impression: 1. No acute cardiopulmonary process. Electronically signed by: Enrique Rashid DO (11/26/2019 1:42 PM) [id number] DICTATED AND SIGNED BY: ENRIQUE RASHID DO DATE: 11/26/19 1342 CC: CHUCK RAMON DO; BRAXTON TRIPATHI DO ~ EXAM: CT Abdomen and Pelvis with IV contrast INDICATION: Reason: epigastric pain / Spl. Instructions: / History: TECHNIQUE: Multi-detector row CT images were acquired from the lung bases through the abdomen and pelvis with the use of IV contrast. Sagittal and coronal images were acquired from the transaxial data. All CT scans performed at this facility utilize dose optimization techniques as appropriate to the exam, including the following: Automated exposure control and adjustment of the mA and/or KV according to patient size (this includes techniques or standardized protocols for targeted exams where dose is indication/reason for exam). IV CONTRAST: Administered ORAL CONTRAST: Not administered COMPARISON: None FINDINGS: LOWER CHEST: Unremarkable LIVER: Unremarkable BILIARY SYSTEM: Gallbladder shows enhancement along the mucosa diffusely. No radiopaque stones are identified.. There is mild intrahepatic and extrahepatic biliary dilation with the common duct measuring 1.2 cm. PANCREAS: Unremarkable SPLEEN: Unremarkable ADRENALS: Unremarkable KIDNEYS & URETERS: Unremarkable BLADDER: Unremarkable REPRODUCTIVE ORGANS: Unremarkable GASTROINTESTINAL: Foci of luminal narrowing in the proximal large bowel are present and likely reflect peristaltic contractions although they are incompletely assessed on single phase imaging. The stomach, small bowel, and colon are otherwise unremarkable. The appendix is not well seen but there are no findings suggesting acute appendicitis. MESENTERY/PERITONEUM/RETROPERITONEUM: Unremarkable VASCULAR: Unremarkable LYMPH NODES: No adenopathy OSSEOUS & SOFT TISSUES: Unremarkable IMPRESSION: Mucosal enhancement in the cystic duct and gallbladder wall along with mild intrahepatic and extra hepatic biliary dilation could reflect cholecystitis and mild biliary obstruction. If choledocholithiasis is suspected, abdominal MRI with MRCP or gallbladder ultrasound could be pursued in further evaluation. Electronically signed by: Kassandra Go MD (11/26/2019 3:53 PM) [id number] DICTATED AND SIGNED BY: KASSANDRA GO MD DATE: 11/26/19 1553 CC: CHUCK RAMON DO; BRAXTON TRIPATHI DO ~ ABDOMEN LTD History: Abnormal liver labs Comparison: None. Findings: Multiple sonographic images of the abdomen are submitted. Pancreas is not well-visualized due to bowel gas. There is contracted appearance of the gallbladder although patient has had recent oral intake. There is some possible echogenicity in the gallbladder lumen. Gallbladder wall thickness is borderline thickened about 0.3 cm. Reportedly there is a positive sonographic Carlson's sign. There is coarsening of the hepatic echotexture. Right lobe of the liver measured 17.5 cm longitudinal. There is dilatation of the extra hepatic common bile duct about 1 cm. Right kidney measured 10.8 x 4.2 x 4.2 cm with no hydronephrosis. There is a hypoechoic lesion of the mid right kidney about 1.1 x 1.1 x 1 cm, mild internal echoes. This is difficult to confidently distinguish on submitted color Doppler images, not believed to be hypervascular as per technologist. There is segmental visualization of the inferior vena cava. Impression: 1. There is dilatation of the extrahepatic common bile duct about 1 cm. There may be cholelithiasis although poorly distinguished due to contraction of the gallbladder. There is borderline/mild gallbladder wall thickening and positive sonographic Carlson's sign which could be seen with cholecystitis in the appropriate clinical setting. 2. There is a small hypoechoic lesion of the mid right kidney, somewhat complex cyst favored although vascular images of this region limited. 3. There is probable hepatic steatosis. Electronically signed by: Tom Raymond MD (11/26/2019 3:26 PM) [facility] DICTATED AND SIGNED BY: TOM RAYMOND MD DATE: 11/26/19 1526 CC: CHUCK RAMON DO; BRAXTON TRIPATHI DO ~ Course & Med Decision Making: Course & Med Decision Making Pertinent Labs and Imaging studies reviewed. (See chart for details) The patient's liver enzymes are very elevated. Have ordered a lipase, CT of the abdomen pelvis, and abdominal ultrasound. CT scan and ultrasound shows likely cholecystitis and possible blockage of the common bile duct. I have ordered a lactic acid and blood cultures. I will treat her with first dose of Zosyn. I spoke with Dr. Alvarez and he has accepted the patient for transfer and admission to [facility]. There are no beds available so Dr. Alvarez has a greed to keep the patient at this facility and transfer her tomorrow. [] Dragon Disclaimer: Dragarlin Disclaimer: This electronic medical record was generated, in whole or in part, using a voice recognition dictation system. Departure Departure: Impression: Primary Impression: Bile duct obstruction Disposition: ADMITTED INPT THIS HOSP Admitting Physician: Justin Alvarez Condition: STABLE Referrals: BRAXTON TRIPATHI DO (PCP) CHUCK RAMON DO Nov 26, 2019 14:40
[2019-11-26] MEDS ORDERED: MORPHINE SULFATE 2 MG/ML DISP.SYRIN. IV ONE (15:00)
[2019-11-26] MEDS ORDERED: IOHEXOL 300 MG/ML 75 ML VIAL. IV ONE (15:00)
[2019-11-26] MEDS ORDERED: ONDANSETRON PF 4 MG/2 ML VIAL. IVP ONE (15:00)
--- NOTE | 2019-11-26 15:29 | RAD ---
ABDOMEN LTD History: Abnormal liver labs Comparison: None. Findings: Multiple sonographic images of the abdomen are submitted. Pancreas is not well-visualized due to bowel gas. There is contracted appearance of the gallbladder although patient has had recent oral intake. There is some possible echogenicity in the gallbladder lumen. Gallbladder wall thickness is borderline thickened about 0.3 cm. Reportedly there is a positive sonographic Carlson's sign. There is coarsening of the hepatic echotexture. Right lobe of the liver measured 17.5 cm longitudinal. There is dilatation of the extra hepatic common bile duct about 1 cm. Right kidney measured 10.8 x 4.2 x 4.2 cm with no hydronephrosis. There is a hypoechoic lesion of the mid right kidney about 1.1 x 1.1 x 1 cm, mild internal echoes. This is difficult to confidently distinguish on submitted color Doppler images, not believed to be hypervascular as per technologist. There is segmental visualization of the inferior vena cava. Impression: 1. There is dilatation of the extrahepatic common bile duct about 1 cm. There may be cholelithiasis although poorly distinguished due to contraction of the gallbladder. There is borderline/mild gallbladder wall thickening and positive sonographic Carlson's sign which could be seen with cholecystitis in the appropriate clinical setting. 2. There is a small hypoechoic lesion of the mid right kidney, somewhat complex cyst favored although vascular images of this region limited. 3. There is probable hepatic steatosis. Electronically signed by: Saulo Parson MD (11/26/2019 3:26 PM) [facility]
--- NOTE | 2019-11-26 15:55 | RAD ---
EXAM: CT Abdomen and Pelvis with IV contrast INDICATION: Reason: epigastric pain / Spl. Instructions: / History: TECHNIQUE: Multi-detector row CT images were acquired from the lung bases through the abdomen and pelvis with the use of IV contrast. Sagittal and coronal images were acquired from the transaxial data. All CT scans performed at this facility utilize dose optimization techniques as appropriate to the exam, including the following: Automated exposure control and adjustment of the mA and/or KV according to patient size (this includes techniques or standardized protocols for targeted exams where dose is indication/reason for exam). IV CONTRAST: Administered ORAL CONTRAST: Not administered COMPARISON: None FINDINGS: LOWER CHEST: Unremarkable LIVER: Unremarkable BILIARY SYSTEM: Gallbladder shows enhancement along the mucosa diffusely. No radiopaque stones are identified.. There is mild intrahepatic and extrahepatic biliary dilation with the common duct measuring 1.2 cm. PANCREAS: Unremarkable SPLEEN: Unremarkable ADRENALS: Unremarkable KIDNEYS & URETERS: Unremarkable BLADDER: Unremarkable REPRODUCTIVE ORGANS: Unremarkable GASTROINTESTINAL: Foci of luminal narrowing in the proximal large bowel are present and likely reflect peristaltic contractions although they are incompletely assessed on single phase imaging. The stomach, small bowel, and colon are otherwise unremarkable. The appendix is not well seen but there are no findings suggesting acute appendicitis. MESENTERY/PERITONEUM/RETROPERITONEUM: Unremarkable VASCULAR: Unremarkable LYMPH NODES: No adenopathy OSSEOUS & SOFT TISSUES: Unremarkable IMPRESSION: Mucosal enhancement in the cystic duct and gallbladder wall along with mild intrahepatic and extra hepatic biliary dilation could reflect cholecystitis and mild biliary obstruction. If choledocholithiasis is suspected, abdominal MRI with MRCP or gallbladder ultrasound could be pursued in further evaluation. Electronically signed by: Lamine Go MD (11/26/2019 3:53 PM) [id number]
[2019-11-26] MEDS ORDERED: PIPERACILLIN/TAZOBACTAM 3.375 GM in IV NORMAL SALINE 50ML 50 ML IV ONE (16:15)
[2019-11-26] MEDS ORDERED: PIPERACILLIN/TAZOBACTAM 3.375 GM VIAL IV ONE (16:33)
[2019-11-26] MEDS ORDERED: IV NORMAL SALINE 50ML 50 ML ONE (16:33)
[2019-11-26 16:52] LABS: BACTERIA,URINE MOD /HPF (0-FEW); BILIRUBIN,URINE LARGE (NEG); CLARITY,URINE HAZY; COLOR,URINE AMBER; GLUCOSE,URINE NEG (NEG); NITRITE,URINE NEG (NEG); RBC,URINE 0 /HPF (0-2); SQUAMOUS EPITHELIAL CELL,UR MANY /LPF; WBC,URINE OCC /HPF (0-4)
[2019-11-26 16:53] LABS: HYALINE CASTS, URINE OCC /HPF
[2019-11-26] MEDS ORDERED: ACETAMINOPHEN 325 MG TABLET PO PRN (17:45)
[2019-11-26 18:30] VITALS: BP 134/75
--- NOTE | 2019-11-26 19:00 | NUR ---
The patient, CHARAN SMITH, 64 y/o, F admitted by ZAYDA LUZ MD, was given written information regarding hospital policies, unit procedures and contact persons. Pt arrived on previous shift, here for c/o RLQ pain x3 days. Pt found to have bile duct obstruction, awaiting placement at [facility] for surgery. Valuables were checked and logged. Home medications sent to pharmacy. Discussed plan of care, pt voiced understanding.
[2019-11-26] MEDS: MORPHINE SULFATE 2 MG/ML DISP.SYRIN. IVP PRN (22:26)
[2019-11-26 22:53] VITALS: BP 130/78
[2019-11-27] MEDS ORDERED: OMEP40CA45 PO (01:35)
[2019-11-27] MEDS ORDERED: ATOR10TA60 PO (01:35)
[2019-11-27] MEDS ORDERED: HYDR25TA PO (01:36)
[2019-11-27] MEDS ORDERED: ASPI-630 PO (01:36)
[2019-11-27] MEDS ORDERED: TIOT4MIS3 IH (01:36)
[2019-11-27] MEDS ORDERED: FESO8TAB PO (01:36)
[2019-11-27] MEDS ORDERED: POTA10TA5 PO (01:36)
[2019-11-27 06:20] VITALS: BP 144/76
[2019-11-27] MEDS: MORPHINE SULFATE 2 MG/ML DISP.SYRIN. IVP PRN ×3 (06:26→16:19)
[2019-11-27] MEDS ORDERED: FLU VACC QS 2020-21(6MOS+)/PF 0.5 ML SYRINGE. VAX IM ONE (09:00)
[2019-11-27] MEDS: ONDANSETRON PF 4 MG/2 ML VIAL. IVP PRN ×2 (10:40→16:20)
[2019-11-27 11:07] VITALS: BP 131/82
[2019-11-27 14:45] VITALS: BP 135/78
--- NOTE | 2019-11-27 15:04 | NUR ---
This nursing segmental paving supervisor spoke with [facility] nursing segmental paving supervisor, Yael regarding pending transfer for common bile duct dilatation obstruction for possible surgery. Yael was not aware of the pending transfer, she will research and callback.
[2019-11-27] MEDS ORDERED: POTASSIUM CL 40MEQ D5-0.45NACL 1,000 ML IV SCH (16:15)
[2019-11-27 16:24] LABS: HEMATOCRIT 40.9 % (36.0-47.0); HEMOGLOBIN 13.2 g/dL (12.0-15.5); RED BLOOD COUNT 4.62 x10^6/uL (3.50-5.40); RED CELL DISTRIBUTION WIDTH 15.3 % (11.5-14.5); WHITE BLOOD COUNT 10.3 x10^3/uL (4.0-11.0)
[2019-11-27 16:34] LABS: CALCIUM 10.1 mg/dL (8.5-10.1); CREATININE 0.8 mg/dL (0.6-1.0); GFR 72.4; POTASSIUM 3.6 mmol/L (3.5-5.1)
[2019-11-27 16:40] LABS: ALBUMIN 3.3 g/dL (3.4-5.0); ALBUMIN/GLOBULIN RATIO 0.9 (1.0-1.7); TOTAL BILIRUBIN 1.7 mg/dL (0.2-1.0); TOTAL PROTEIN 6.9 g/dL (6.4-8.2)
[2019-11-27] MEDS ORDERED: PIPERACILLIN/TAZOBACTAM 3.375 GM in IV NORMAL SALINE 50ML 50 ML IV SCH (18:00)
--- NOTE | 2019-11-27 18:00 | HP ---
ADMIT DATE: 11/26/2019 HISTORY OF PRESENT ILLNESS: The patient is a 64-year-old female patient who presented to the Emergency Room with a complaint of abdominal pain started in the epigastric area that has been going on for the last couple of days, pain is cramping sensation, noted that her stool has turned white. She found this very concerning, so she came to the Emergency Room. She does not drink any alcohol, denies any drug use. She has not had anything like this before. She still has her gallbladder. She has no history of hepatitis or IV drug use. She was evaluated in the Emergency Room extensively and was found to be jaundiced with markedly abnormal liver enzymes, also elevated serum lipase and had a CT scan of the abdomen and pelvis as well as ultrasound. The ultrasound showed there is dilatation of the extrahepatic common bile duct about 1 cm. There may be cholelithiasis, although poorly distinguished due to contraction of the gallbladder. There is borderline mild gallbladder wall thickening and positive sonographic Carlson sign, which could be seen with cholecystitis in the appropriate clinical setting. There is also a small hypoechoic lesion in the mid right kidney, somewhat complex cyst favored although vascular image in this region limited, probable hepatic steatosis. The CT scan of the abdomen and pelvis again showed that she has mucosal enhancement of the cystic duct and gallbladder wall along with mild intrahepatic and extrahepatic biliary dilatation, could reflect cholecystitis and mild biliary obstruction. If choledocholithiasis is suspected, abdominal MRI with MRCP or gallbladder ultrasound could be pursuing for further evaluation. The patient was admitted to [facility]. There are no beds available at [facility]. PAST MEDICAL HISTORY: Significant for hypothyroidism, hyperlipidemia, COPD and bronchial asthma. PAST SURGICAL HISTORY: Unremarkable. ALLERGIES: She is allergic to MEPERIDINE. MEDICATIONS: She is currently on following medications: She is on tiotropium/olodaterol 4 g inhalation once a day, albuterol sulfate 2 puffs every 6 hours, atorvastatin calcium 10 mg daily, aspirin 81 mg once a day, clonazepam 1 mg twice a day, citalopram hydrobromide 40 mg daily, hydroxyzine 25 mg every 6 hours, potassium chloride 20 mEq twice a day, hydrochlorothiazide 12.5 mg once a day, Accolate 20 mg twice a day, and ondansetron 4 mg every 4-6 hours and linaclotide for Linzess 250 mcg once a day, levothyroxine 112 mcg once a day, Toviaz 8 mg daily and theophylline anhydrous 600 mg daily. FAMILY HISTORY: Unremarkable. SOCIAL HISTORY: She is . She does not drink alcohol. She smokes marijuana occasionally. She used to have ____; however, she has been disabled. PHYSICAL EXAMINATION: GENERAL: On arrival to the Emergency Room, she was somewhat tachypneic, tachycardic, jaundiced, but not cyanosed. No lymphadenopathy, no thyromegaly. No jugular venous distention, no limb edema. VITAL SIGNS: Her heart rate was 144, blood pressure 118/94, her temperature was 97.2, respiratory rate was 26 and oxygen saturation was 100% on room air. HEAD, EYES, EARS, NOSE AND THROAT: Showed normocephalic, atraumatic. NECK: Supple. HEART: Showed normal first and second heart sounds. No gallop or murmur. CHEST: Clear to auscultation. No crepitation or rhonchi. ABDOMEN: Distended, soft. Tenderness mostly in the right upper quadrant. NEUROLOGIC: She is awake, alert, responding appropriately. All cranial nerves intact. EXTREMITIES: She moves extremities without difficulty. She ambulates without assistance or assistive devices. LABORATORY DATA: Her lab work on admission showed a white cell count of 10,000, hemoglobin 14.9, hematocrit 46, MCV 88 and platelet count 266,000. Her chemistry showed a serum sodium 138, potassium 3.2, chloride 102, bicarbonate 22, anion gap of 14, BUN 15, creatinine 1.1, estimated GFR was 50 mL per minute. Her glucose 167, calcium was 10.5. Total bilirubin 2.3. AST, ALT, alkaline phosphatase are all elevated. Her total protein was 7.3 and albumin was 4.1. Serum lipase was 945. Lactic acid is only ____. Urinalysis showed the urine was kim, hazy with a pH of 6, specific gravity of 1.020. There was small amount of protein. The urine was negative for glucose. There was trace of ketones. Negative for blood, nitrite. There was large amount of bilirubin, negative for leukocyte esterase. There are no rbc's, no wbc's, and no bacteria. The patient has a chest x-ray, which showed mild left basilar linear atelectasis, unchanged. No consolidation or pleural effusion, normal heart size, no pneumothorax. Her ultrasound of the abdomen showed there is dilatation of the extrahepatic common bile duct about 1 cm. There may be cholelithiasis, although poorly distinguished due to contraction of the gallbladder. There is borderline mild gallbladder wall thickening and positive sonographic Carlson sign, which could be seen with cholecystitis in the appropriate clinical setting. Small hypoechoic lesion in the mid right kidney. CT scan of the abdomen and pelvis showed that the patient has mucosal enhancement in the cystic duct and gallbladder wall thickening with mild intrahepatic and extrahepatic biliary dilatation, could reflect cholecystitis and mild biliary obstruction. If choledocholithiasis is suspected, abdominal MRI with MRCP or gallbladder ultrasound could be pursued for further evaluation. ASSESSMENT AND PLAN: The patient was admitted with gallstone pancreatitis. She was kept n.p.o., started on IV fluid and IV antibiotic. She was kept here in [facility] because they have no beds available at [place]. We will work to transfer her to [facility] for definitive surgical treatment. ZAYDA LUZ MD DR: ARIS/jayne JOB#: [id number] / [id number]
[2019-11-27] MEDS ORDERED: MORPHINE SULFATE 2 MG/ML DISP.SYRIN. ONE (18:59)
[2019-11-27] MEDS ORDERED: MORPHINE SULFATE 2 MG/ML DISP.SYRIN. IV PRN (19:15)
--- NOTE | 2019-11-27 19:20 | NUR ---
Discharge Note: CHARAN SMITH 1 [facility] Discharge instructions and discharge home medications reviewed with Other facility and a copy given. All questions have been answered and understanding verbalized. The following instructions and handouts were given: med rec, dc packet. Discontinued lines and drains: Peripheral IV intact. Patient discharged to [facility] with Ambulance Personnel via Stretcher. Pt declined to take home meds from the pharmacy. Pt said she will contact her to flower picker.
== END 2019-11-27 19:22 | disposition short-term general hospital (02) | DRG 438 ==
LOC: ER 12:35 → 1 SOUTH 17:46 → ER 18:33
PROVIDERS: ADMIT Internal Medicine; ATTEND Internal Medicine
DX: K85.10 Biliary acute pancreatitis without necrosis or infection (principal); K83.1 Obstruction of bile duct; F41.9 Anxiety disorder, unspecified; F32.9 Major depressive disorder, single episode, unspecified; K21.9 Gastro-esophageal reflux disease without esophagitis; E03.9 Hypothyroidism, unspecified; E78.5 Hyperlipidemia, unspecified; F12.90 Cannabis use, unspecified, uncomplicated; J44.9 Chronic obstructive pulmonary disease, unspecified; N28.1 Cyst of kidney, acquired; Z87.891 Personal history of nicotine dependence; K76.0 Fatty (change of) liver, not elsewhere classified; Z88.8 Allergy status to other drugs, medicaments and biological substances
CPT/HCPCS: 36415; 71045; 74177; 76705; 80053; 81001; 83605; 83690; 84484; 85025; 85027; 87040; 87077; 87086; 87186; 90471; 93005; 96361; 96365; 96375; J2270; J2405; J2543; J7042; Q9967; 90686; 99285-25; J7030

== ENCOUNTER → 2019-12-13 | Outpatient (CLI) | payer MEDICARE ==
[2019-11-27 14:45] VITALS: BP 135/78
[~2019-12-13] MED LIST changes: +ASPI-630 PO; +ATOR10TA60 PO; +FESO8TAB PO; +HYDR25TA PO; +OMEP40CA45 PO; +POTA10TA5 PO; +TIOT4MIS3 IH
[2019-12-13 13:44] LABS: ALBUMIN 3.6 g/dL (3.4-5.0); DIRECT BILIRUBIN 0.2 mg/dL (0.0-0.2); TOTAL BILIRUBIN 0.3 mg/dL (0.2-1.0); TOTAL PROTEIN 6.8 g/dL (6.4-8.2)
== END ==
LOC: LAB 12:38
PROVIDERS: ATTEND Surgery
DX: K80.42 Calculus of bile duct with acute cholecystitis without obstruction (principal)
CPT/HCPCS: 36415; 80076

== ENCOUNTER → 2020-02-02 | Outpatient (CLI) | payer MEDICARE, OTHER ==
[~2020-02-02] MED LIST changes: -THEO600T PO; +THEO600T4 PO
[2020-02-02 11:17] LABS: BASO # 0.1 x10^3/uL (0.0-0.2); BASO % 1 % (0-3); EOS # 0.2 x10^3/uL (0.0-0.7); EOS % 3 % (0-3); HEMATOCRIT 44.8 % (36.0-47.0); HEMOGLOBIN 14.4 g/dL (12.0-15.5); LYMPH # 1.2 x10^3/uL (1.0-4.8); LYMPH % 17 % (24-48); MEAN CORPUSCULAR HEMOGLOBIN 29 pg (25-35); MEAN CORPUSCULAR HGB CONC 32 g/dL (31-37); MEAN CORPUSCULAR VOLUME 89 fL (79-100); MONO # 0.5 x10^3/uL (0.0-1.1); MONO % 7 % (0-9); NEUT # 5.3 x10^3uL (1.8-7.7); NEUT % 73 % (31-73); PLATELET COUNT 246 x10^3/uL (140-400); RED BLOOD COUNT 5.02 x10^6/uL (3.50-5.40); WHITE BLOOD COUNT 7.2 x10^3/uL (4.0-11.0)
[2020-02-02 11:27] LABS: ALBUMIN 3.8 g/dL (3.4-5.0); ALBUMIN/GLOBULIN RATIO 1.1 (1.0-1.7); CALCIUM 9.8 mg/dL (8.5-10.1); POTASSIUM 4.4 mmol/L (3.5-5.1); TOTAL BILIRUBIN 0.2 mg/dL (0.2-1.0); TOTAL PROTEIN 7.4 g/dL (6.4-8.2)
[2020-02-02 19:52] LABS: FREE T4 0.73 ng/dL (0.76-1.46)
[2020-02-02 19:53] LABS: THEOPH 7 mcg/mL (10-20); THYROID STIM HORMONE (TSH) 3.893 uIU/mL (0.358-3.740)
== END ==
LOC: LAB 10:25
PROVIDERS: ATTEND Family Medicine
DX: J45.20 Mild intermittent asthma, uncomplicated (principal); E03.9 Hypothyroidism, unspecified
CPT/HCPCS: 36415; 80053; 80061; 80198; 84439; 84443; 85025

== ENCOUNTER → 2020-07-20 | Outpatient (CLI) | payer MEDICARE, OTHER ==
[~2020-07-20] MED LIST changes: +IBUP-1818 PO; -IBUP100O25 PO; +MIRA25TA PO; -MIRA50TA PO; -OMEP40CA45 PO; +OMEP40CA7 PO
[2020-07-20 12:59] LABS: ALBUMIN 3.7 g/dL (3.4-5.0); ALBUMIN/GLOBULIN RATIO 1.2 (1.0-1.7); CALCIUM 9.4 mg/dL (8.5-10.1); CREATININE 0.8 mg/dL (0.6-1.0); GFR 72.4; POTASSIUM 4.2 mmol/L (3.5-5.1); TOTAL BILIRUBIN 0.3 mg/dL (0.2-1.0); TOTAL PROTEIN 6.9 g/dL (6.4-8.2); URIC ACID 6.4 mg/dL (2.6-6.0)
[2020-07-21 19:43] LABS: FREE T4 1.07 ng/dL (0.76-1.46); THYROID STIM HORMONE (TSH) 0.58 uIU/mL (0.358-3.740)
== END ==
LOC: LAB 09:38
PROVIDERS: ATTEND Family Medicine
DX: M79.674 Pain in right toe(s) (principal); R73.9 Hyperglycemia, unspecified; E03.9 Hypothyroidism, unspecified; E78.5 Hyperlipidemia, unspecified
CPT/HCPCS: 36415; 80053; 80061; 83036; 84439; 84443; 84550

== ENCOUNTER → 2020-12-08 | Outpatient (CLI) | payer OTHER ==
[~2020-12-08] MED LIST changes: -CITA40TA5 PO; +CITA40TA6 PO; +IBUP-1742 PO; -IBUP-1818 PO; +POTA-112 PO; -POTA10TA5 PO
[2020-12-08 11:43] LABS: BASO % 1 % (0-3); EOS # 0.2 x10^3/uL (0.0-0.7); EOS % 3 % (0-3); HEMATOCRIT 43.9 % (36.0-47.0); HEMOGLOBIN 14.3 g/dL (12.0-15.5); LYMPH # 1.1 x10^3/uL (1.0-4.8); LYMPH % 18 % (24-48); MEAN CORPUSCULAR HEMOGLOBIN 29 pg (25-35); MEAN CORPUSCULAR HGB CONC 33 g/dL (31-37); MEAN CORPUSCULAR VOLUME 87 fL (79-100); MONO # 0.4 x10^3/uL (0.0-1.1); MONO % 7 % (0-9); NEUT # 4.5 x10^3uL (1.8-7.7); NEUT % 72 % (31-73); PLATELET COUNT 254 x10^3/uL (140-400); RED BLOOD COUNT 5.03 x10^6/uL (3.50-5.40); RED CELL DISTRIBUTION WIDTH 14.6 % (11.5-14.5); WHITE BLOOD COUNT 6.3 x10^3/uL (4.0-11.0)
[2020-12-08 11:59] LABS: ALBUMIN 3.9 g/dL (3.4-5.0); ALBUMIN/GLOBULIN RATIO 1.1 (1.0-1.7); CALCIUM 9.5 mg/dL (8.5-10.1); CREATININE 0.8 mg/dL (0.6-1.0); GFR 72.2; POTASSIUM 4.3 mmol/L (3.5-5.1); TOTAL BILIRUBIN 0.3 mg/dL (0.2-1.0); TOTAL PROTEIN 7.3 g/dL (6.4-8.2)
[2020-12-09 00:07] LABS: HEMOGLOBIN A1C 6.3 % (4.8-5.6)
[2020-12-09 12:45] LABS: THEOPH 5 mcg/mL (10-20)
[2020-12-09 12:54] LABS: FREE T4 1.08 ng/dL (0.76-1.46)
[2020-12-09 12:55] LABS: THYROID STIM HORMONE (TSH) 0.234 uIU/mL (0.358-3.740)
--- NOTE | 2020-12-11 13:52 | RAD ---
Bilateral digital screening mammogram to include digital breast tomosynthesis (3-D mammography) 12/08 CLINICAL HISTORY: Screening study. Digital MLO and CC mammograms of both breasts were obtained. Additionally digital breast tomosynthesi s images (3-D mammography) of both breasts in the CC and MLO projections were obtained. Comparison studies are dated 10/29/2019, 07/14/2018 and 06/23/2017. The breast parenchyma is heterogeneously dense which could obscure a lesion on mammography (breast de nsity C). Benign-appearing calcifications are seen within both breasts. No spiculated mass is seen. N o malignant appearing calcification or area of architectural distortion is noted. Digital breast tomosynthesis images demonstrate no spiculated mass. No malignant appearing calcificat ion is seen. Impression: BI-RADS Category 1: Negative. There is no mammographic evidence of malignancy. Routine y early screening mammography is recommended for follow-up. This examination was reviewed with the aid of computer-aided detection. A mammogram does not have 100% sensitivity and therefore a negative imaging study should not delay fu rther work up of a suspicious abnormality. Patient information is entered into the reminder system with a target due date for the next screening mammogram of 12/08/2021. "Our facility is accredited by the [employer] Mammography Program." Electronically signed by: Rohit Lemon MD (12/11/2020 1:49 PM) [id number]
== END ==
LOC: LAB 10:33
PROVIDERS: ATTEND Family Medicine
DX: Z12.31 Encounter for screening mammogram for malignant neoplasm of breast (principal); E03.9 Hypothyroidism, unspecified; J45.20 Mild intermittent asthma, uncomplicated; R73.9 Hyperglycemia, unspecified
CPT/HCPCS: 36415; 77063; 77067; 80053; 80198; 83036; 84439; 84443; 85025

== ENCOUNTER → 2021-03-20 | Outpatient (CLI) | payer OTHER ==
[2021-03-20 11:07] LABS: ALBUMIN 3.6 g/dL (3.4-5.0); ALBUMIN/GLOBULIN RATIO 1.1 (1.0-1.7); CALCIUM 9.4 mg/dL (8.5-10.1); GFR 55.8; POTASSIUM 4.6 mmol/L (3.5-5.1); TOTAL BILIRUBIN 0.2 mg/dL (0.2-1.0)
[2021-03-20 19:08] LABS: CHOLESTEROL/HDL RATIO 2.7; FREE T4 0.98 ng/dL (0.76-1.46); THYROID STIM HORMONE (TSH) 0.736 uIU/mL (0.358-3.740)
[2021-03-21 03:07] LABS: HEMOGLOBIN A1C 6.1 % (4.8-5.6)
== END ==
LOC: LAB 10:05
PROVIDERS: ATTEND Family Medicine
DX: E03.9 Hypothyroidism, unspecified (principal); E78.5 Hyperlipidemia, unspecified; E74.39 Other disorders of intestinal carbohydrate absorption; R73.03 Prediabetes
CPT/HCPCS: 36415; 80053; 80061; 83036; 84439; 84443